=== PATIENT | female | born 1955 | race African-American/Black ===

== ENCOUNTER 2016-03-30 08:27 | Day surgery (SDC) | payer MEDICARE ==
[~2016-03-30] VITALS: Ht 167.6 cm; Wt 60.9 kg
[~2016-03-30 08:27] MED LIST: GLIPIZIDE10 MG PO; GLUCOTROL 5 MG T5 MG PO; MIRALAX17 GM PO; NEPHRO-VITE RX1 TAB PO; NORCO 7.5/325 T1 TA1 PO; PHOSLO667 MG PO; PROTONIX40 MG PO; ULTRAM50 MG PO; ZOFRAN ODT4 MG/UDTAB PO
[2016-03-30] MEDS ORDERED: NORMODYNE / TR200 MG PO (09:01)
[2016-03-30] MEDS ORDERED: CATAPRES0.2 MG PO (09:02)
[2016-03-30] MEDS ORDERED: NORVASC10 MG PO (09:02)
[2016-03-30] MEDS ORDERED: LIPITOR20 MG PO (09:02)
[2016-03-30] MEDS ORDERED: PEPCID20 MG PO (09:03)
[2016-03-30] MEDS ORDERED: PHOSLO667 MG PO (09:04)
[2016-03-30] MEDS ORDERED: OMEPRAZOLE20 M1 PO (09:04)
[2016-03-30] MEDS ORDERED: GABAPENTIN100 MG PO (09:04)
[2016-03-30 09:24] VITALS: BP 182/94; Ht 167.6 cm; Wt 60.9 kg
[2016-03-30 09:27] LABS: BASOPHILS 0.1 % (0.0-2.0); EOSINOPHILS 4.7 % (0-7); HEMATOCRIT 36.4 % (36.0-48.0); HEMOGLOBIN 11.7 g/dL (12-16); IMMATURE GRANULOCYTES 0.2 % (0-5); LYMPHOCYTES 9.9 % (15-50); MCH 29.8 pg (26.0-34.0); MCHC 32.1 g/dL (31.0-37.0); MCV 92.6 fL (80.0-100.0); MEAN PLATELET VOLUME 8.9 fL (7.4-10.4); MONOCYTES 2.5 % (2-11); NEUTROPHILS 82.6 % (40-80); RBC 3.93 10x6/uL (4.00-5.40); RDW 14.1 % (11.5-14.5); WBC 8.5 10x3/uL (4.8-10.8)
[2016-03-30 09:35] LABS: PLATELET COUNT 179 10x3/uL (130-400)
[2016-03-30 09:42] LABS: ANION GAP 16.7 mmol/L (8-16); CALCIUM 9.2 mg/dL (8.5-10.1); CARBON DIOXIDE 29.2 mmol/L (21.0-32.0); CREATININE - SERUM 8.1 mg/dL (0.6-1.3); POTASSIUM - SERUM 3.9 mmol/L (3.5-5.1)
--- NOTE | 2016-04-12 19:43 | HP ---
PATIENT: GRISEL HERNANDEZ MEDICAL RECORD: [id number] ACCOUNT: [id number] LOCATION:[facility] : 55 ADMISSION DATE: 03/30/16 HISTORY AND PHYSICAL EXAMINATION HISTORY OF PRESENT ILLNESS: The patient is a 60-year-old black female with diabetes, hypertension, end-stage renal disease on hemodialysis as well as a reported history of colon cancer resected in [place] several years ago, who now presents for surveillance colonoscopy. She also has chronic epigastric/periumbilical pain associated nausea and occasional vomiting. She was hospitalized for this in December of last year. She has had her gallbladder removed in the past. A CT of the abdomen and pelvis were unremarkable. KUB revealed constipation. EGD was normal. She was treated with MiraLax and mineral oil and was sent home. She is now for surveillance colonoscopy. She apparently has not had a colonoscopy since her surgery for her colon cancer. PAST MEDICAL HISTORY: As above. PAST SURGICAL HISTORY: Remarkable for her colon resection, open cholecystectomy, , hysterectomy. ALLERGIES: No known drug allergies. HOME MEDICATIONS: Include glipizide, Zofran, Ultram, Moran, which I told her to stop as well as MiraLax and mineral oil. FAMILY HISTORY: Negative for GI disease. SOCIAL HISTORY: The patient is a nonsmoker, nondrinker. REVIEW OF SYSTEMS: Noncontributory other than in the HPI. PHYSICAL EXAMINATION: GENERAL: Reveals an elderly black female in no acute distress. VITAL SIGNS: Stable. She is afebrile. CHEST: Clear. HEART: Regular rate and rhythm. ABDOMEN: Soft and not soft and essentially nontender. She has several large abdominal scars present on the midline. EXTREMITIES: No edema. LABORATORY DATA: Unremarkable. IMPRESSION: 1. Reported history of colon cancer, status post resection in [place] a few years ago. Details of this are very sketchy. 2. Chronic abdominal pain, more likely related to underlying chronic constipation. Again, she had a negative EGD, gastric emptying scan, and CT of the abdomen recently. PLAN: Surveillance colonoscopy. TRANSINT:[id number] Voice Confirmation ID: [id number] DOCUMENT ID: [id number] HISTORY AND PHYSICAL [id number] GRISEL HERNANDEZ JOHN MD at 1943 CC: [id number] DICTATION DATE: 03/30/16 1256 AIRLINE PILOT: 03/30/16 1314 [facility] 03/30/16 [facility] [address] [id number]
--- NOTE | 2016-04-12 19:43 | PRO ---
PATIENT:GRISEL HERNANDEZ MEDICAL RECORD: [id number] : 55 LOCATION:D.OPS ADMISSION DATE: 03/30/16 PROCEDURE PERFORMED BY: JUAN A NAM MD DATE OF PROCEDURE: 03/30/2016 HAND DRILLER: Juan A Nam MD PROCEDURE: Colonoscopy with polypectomy times 12 via hot biopsy and snare cautery technique. INDICATION: The patient is a 60-year-old black female with history of end-stage renal disease on hemodialysis, diabetes and hypertension as well as a history of colon cancer resected in [place] a few years ago per her report, who is now for surveillance colonoscopy. She has chronic abdominal pain, felt to be due to chronic constipation. She had a negative CT of the abdomen and pelvis as well as EGD and gastric emptying scan recently. She is now for surveillance colonoscopy. PREMEDICATION: Taper anesthesia. INSTRUMENT: Olympus video adjustable colonoscope. FINDINGS: Rectal exam was normal. The colonoscope was passed through the rectum into the cecum without much difficulty. Prep was good. Exam was remarkable for a surgical change consistent with a sigmoid colectomy with an anastomotic site roughly 10 cm from anal verge. Exam was also remarkable for multiple colon polyps throughout the entire right side of the colon extending from the appendiceal orifice to roughly the hepatic flexure. These polyps range from 8 mm to 18 mm in size and were removed by hot biopsy and some snare cautery technique. The rest of exam was normal. The patient tolerated the procedure well without any immediate complication. IMPRESSION: 1. Multiple right-sided colon polyps, status post polypectomy via hot biopsy and snare cautery technique as noted above times 12. 2. Surgical change consistent with a sigmoid colectomy. 3. Otherwise, normal colonoscopy. RECOMMENDATIONS: 1. Follow up biopsy results. 2. Surveillance colonoscopy in 1 year. TRANSINT:[id number] Voice Confirmation ID: [id number] DOCUMENT ID: [id number] JUAN A NAM MD at 1943 CC: JENNIE VERGARA MD [id number] DICTATION DATE: 03/30/16 1343 LOAN COUNSELOR: 03/30/16 1909 [facility] 03/30/16 [facility] [address] [id number]
== END 2016-03-30 15:00 | disposition home or self-care (01) ==
LOC: D.OPS 08:27
PROVIDERS: Anesthesiology
DX: K63.5 Polyp of colon (principal); E11.9 Type 2 diabetes mellitus without complications; I13.2 Hypertensive heart and chronic kidney disease with heart failure and with stage 5 chronic kidney disease, or end stage renal disease; N18.6 End stage renal disease; Z99.2 Dependence on renal dialysis; K21.9 Gastro-esophageal reflux disease without esophagitis; Z85.038 Personal history of other malignant neoplasm of large intestine

== ENCOUNTER 2017-03-25 14:42 | Inpatient (IN) | payer MEDICARE ==
[~2017-03-25] VITALS: Ht 167.6 cm; Wt 62.3 kg
--- NOTE | ~2017-03-25 | DS ---
PATIENT:GRISEL MCCORMACK :55 MEDICAL RECORD: [id number] DISCHARGE SUMMARY ADMISSION DATE: 03/25/17 DISCHARGE DATE: 04/03/17 Ms. Mccormack is a 61-year-old black female with end-stage renal disease, on chronic dialysis in [place]; chronic hypertension; and diabetes. No recent hospitalizations. Admitted upon transfer due to continued nausea and vomiting, and was admitted for the above. HOSPITAL COURSE: The patient has a long history of nausea and vomiting. She had an abdominal ultrasound that revealed evidence of cholecystectomy, otherwise negative. She underwent a gastric emptying scan that was markedly positive for gastroparesis. She was begun on Reglan therapy with acceleration of dosage. She still had nausea, seen by Dr. Richards, where she underwent an EGD with finding of some gastroparesis and mild gastritis, otherwise negative. No ulcer, etc. She was felt to be stable on medical therapy. With accelerating Reglan dose, she did improve and was stable at the time of discharge. She underwent acute dialysis without difficulty. DISCHARGE DIAGNOSES: 1. Diabetic gastroparesis, on metoclopramide therapy. 2. Nausea and vomiting, resolved. 3. Diabetes mellitus. 4. End-stage renal disease, on chronic dialysis. 5. Erythropoietin-dependent anemia. PLAN: The patient will be discharged today. We will see her weekly in [place]. She will resume her [place] dialysis. Home health and O2 as qualified. Discharge meds will be PhosLo one t.i.d., hydrocodone p.r.n., Reglan 10 a.c. and at bedtime, Neurontin 100 b.i.d., Zofran p.r.n., clonidine 0.1 b.i.d., Glucotrol 5 daily, Protonix 40 daily, and labetalol 200 mg b.i.d. TRANSINT:[id number] Voice Confirmation ID: [id number] DOCUMENT ID: [id number] JENNIE VERGARA MD at 0655 CC: [id number] DICTATION DATE: 04/03/17 0726 REAR ADMIRAL: 04/03/17 1539 DIS IN 04/03/[id number] [place] [address]
[~2017-03-25 14:42] MED LIST changes: +CATAPRES0.2 MG PO; +GABAPENTIN100 MG PO; +LIPITOR20 MG PO; +NORMODYNE / TR200 MG PO; +NORVASC10 MG PO; +OMEPRAZOLE20 M1 PO; +PEPCID20 MG PO
[2017-03-25 15:05] VITALS: BMI 21.3
[2017-03-26] VITALS: BP 143/75
[2017-03-26 05:10] LABS: BASOPHILS 0 % (0-2); EOSINOPHILS 5.2 % (0-7); HEMATOCRIT 33.3 % (36.0-48.0); HEMOGLOBIN 11.2 g/dL (12-16); IMMATURE GRANULOCYTES 0.2 % (0-5); LYMPHOCYTES 9.3 % (15-50); MCH 31.9 pg (26.0-34.0); MCHC 33.6 g/dL (31.0-37.0); MCV 94.9 fL (80.0-100.0); MONOCYTES 7.3 % (2-11); PLATELET COUNT 156 10x3/uL (130-400); RBC 3.51 10x6/uL (4.00-5.40); RDW 16.2 % (11.5-14.5); WBC 8.3 10x3/uL (4.8-10.8)
[2017-03-26 05:20] LABS: ALBUMIN 3.3 g/dL (3.4-5.0); ANION GAP 19.6 mmol/L (8-16); BILIRUBIN - TOTAL 0.7 mg/dL (0.2-1.3); CALCIUM 7.9 mg/dL (8.5-10.1); CREATININE - SERUM 11.4 mg/dL (0.6-1.3); PHOSPHOROUS 8.9 mg/dL (2.5-4.9); POTASSIUM - SERUM 4.6 mmol/L (3.5-5.1); PROTEIN - SERUM 7.1 g/dL (6.4-8.2)
[2017-03-26 08:09] VITALS: Ht 167.6 cm; Wt 62.3 kg
[2017-03-26 08:43] VITALS: BP 140/70
[2017-03-26 12:11] VITALS: BP 145/85
[2017-03-26 17:50] VITALS: BP 149/76
[2017-03-26 22:06] VITALS: BP 148/70
[2017-03-27 01:10] VITALS: BP 134/72
[2017-03-27 05:07] VITALS: BP 107/59
[2017-03-27 05:49] LABS: BASOPHILS 0.1 % (0-2); EOSINOPHILS 11.5 % (0-7); HEMATOCRIT 33.4 % (36.0-48.0); IMMATURE GRANULOCYTES 0.3 % (0-5); LYMPHOCYTES 16.4 % (15-50); MCH 31.9 pg (26.0-34.0); MCHC 32.9 g/dL (31.0-37.0); MCV 96.8 fL (80.0-100.0); MEAN PLATELET VOLUME 9.4 fL (7.4-10.4); MONOCYTES 6.3 % (2-11); NEUTROPHILS 65.4 % (40-80); PLATELET COUNT 148 10x3/uL (130-400); RBC 3.45 10x6/uL (4.00-5.40); WBC 7.6 10x3/uL (4.8-10.8)
[2017-03-27 06:15] LABS: ANION GAP 23.4 mmol/L (8-16); CALCIUM 7.9 mg/dL (8.5-10.1); CARBON DIOXIDE 23.1 mmol/L (21.0-32.0); CREATININE - SERUM 13.4 mg/dL (0.6-1.3); POTASSIUM - SERUM 4.5 mmol/L (3.5-5.1)
[2017-03-27 06:44] LABS: PHOSPHOROUS 11.1 mg/dL (2.5-4.9)
[2017-03-27 08:19] VITALS: BP 136/71
[2017-03-27 12:21] VITALS: BP 151/74
[2017-03-27 16:08] VITALS: BP 153/69
[2017-03-27 21:59] VITALS: BP 143/81
[2017-03-28 01:46] VITALS: BP 127/57
[2017-03-28 04:53] LABS: BASOPHILS 0.1 % (0-2); EOSINOPHILS 11.5 % (0-7); HEMATOCRIT 34.8 % (36.0-48.0); HEMOGLOBIN 11.4 g/dL (12-16); IMMATURE GRANULOCYTES 0.2 % (0-5); MCH 31.8 pg (26.0-34.0); MCHC 32.8 g/dL (31.0-37.0); MCV 97.2 fL (80.0-100.0); MEAN PLATELET VOLUME 9.1 fL (7.4-10.4); NEUTROPHILS 68.2 % (40-80); PLATELET COUNT 156 10x3/uL (130-400); RBC 3.58 10x6/uL (4.00-5.40); RDW 15.5 % (11.5-14.5); WBC 8.1 10x3/uL (4.8-10.8)
[2017-03-28 05:24] VITALS: BP 127/61
[2017-03-28 05:30] LABS: ALBUMIN 3.4 g/dL (3.4-5.0); ANION GAP 21.4 mmol/L (8-16); BILIRUBIN - TOTAL 0.61 mg/dL (0.2-1.3); CARBON DIOXIDE 26.4 mmol/L (21.0-32.0); CREATININE - SERUM 10.5 mg/dL (0.6-1.3); POTASSIUM - SERUM 4.8 mmol/L (3.5-5.1); PROTEIN - SERUM 7.2 g/dL (6.4-8.2)
[2017-03-28 05:34] LABS: PHOSPHOROUS 10.2 mg/dL (2.5-4.9)
[2017-03-28 08:30] VITALS: BP 150/76
[2017-03-28 11:28] VITALS: BP 110/58
[2017-03-28 21:37] VITALS: BP 128/65
[2017-03-29 01:49] VITALS: BP 111/66
[2017-03-29 05:36] VITALS: BP 112/54
[2017-03-29 06:14] LABS: ANION GAP 23.9 mmol/L (8-16); CARBON DIOXIDE 24.9 mmol/L (21.0-32.0); CREATININE - SERUM 12.5 mg/dL (0.6-1.3); POTASSIUM - SERUM 4.8 mmol/L (3.5-5.1)
[2017-03-29 08:23] VITALS: BP 147/75
[2017-03-29 17:09] VITALS: BP 125/67
[2017-03-29 21:30] VITALS: BP 98/66
[2017-03-30 04:09] LABS: BASOPHILS 0.1 % (0-2); EOSINOPHILS 10.5 % (0-7); HEMATOCRIT 34.4 % (36.0-48.0); HEMOGLOBIN 11.4 g/dL (12-16); IMMATURE GRANULOCYTES 0.2 % (0-5); LYMPHOCYTES 13.1 % (15-50); MCH 32.4 pg (26.0-34.0); MCHC 33.1 g/dL (31.0-37.0); MCV 97.7 fL (80.0-100.0); MEAN PLATELET VOLUME 9.2 fL (7.4-10.4); MONOCYTES 8.6 % (2-11); NEUTROPHILS 67.5 % (40-80); PLATELET COUNT 164 10x3/uL (130-400); RBC 3.52 10x6/uL (4.00-5.40); RDW 15.2 % (11.5-14.5); WBC 8.8 10x3/uL (4.8-10.8)
[2017-03-30 04:24] LABS: ANION GAP 16.6 mmol/L (8-16); CALCIUM 8.5 mg/dL (8.5-10.1); CARBON DIOXIDE 28.9 mmol/L (21.0-32.0); PHOSPHOROUS 8.5 mg/dL (2.5-4.9); POTASSIUM - SERUM 4.5 mmol/L (3.5-5.1)
[2017-03-30 04:25] LABS: CREATININE - SERUM 8.5 mg/dL (0.6-1.3)
[2017-03-30 06:36] VITALS: BP 105/55
[2017-03-30 09:09] VITALS: BP 136/52
[2017-03-30] MEDS ORDERED: PROTONIX40 MG PO (10:01)
[2017-03-30] MEDS ORDERED: REGLAN10 MG PO (10:01)
[2017-03-30 12:15] VITALS: BP 140/67
[2017-03-30 15:58] VITALS: BP 149/75
[2017-03-30 20:26] VITALS: BP 136/62
[2017-03-31 03:34] VITALS: BP 110/46
[2017-03-31 07:00] VITALS: BP 144/75
[2017-03-31 12:48] VITALS: BP 108/52
[2017-03-31 16:00] VITALS: BP 124/60
[2017-03-31 21:41] VITALS: BP 123/66
[2017-04-01 01:10] VITALS: BP 116/45
[2017-04-01 04:58] VITALS: BP 140/62
[2017-04-01 08:14] VITALS: BP 156/70
[2017-04-01 20:00] VITALS: BP 134/54
[2017-04-02 04:00] VITALS: BP 106/44
[2017-04-02 05:06] LABS: BASOPHILS 0.1 % (0-2); HEMATOCRIT 33.7 % (36.0-48.0); HEMOGLOBIN 11.1 g/dL (12-16); IMMATURE GRANULOCYTES 0.5 % (0-5); LYMPHOCYTES 14.1 % (15-50); MCH 32.1 pg (26.0-34.0); MCHC 32.9 g/dL (31.0-37.0); MCV 97.4 fL (80.0-100.0); MEAN PLATELET VOLUME 9.6 fL (7.4-10.4); MONOCYTES 5.9 % (2-11); NEUTROPHILS 73.4 % (40-80); PLATELET COUNT 173 10x3/uL (130-400); RBC 3.46 10x6/uL (4.00-5.40); RDW 14.8 % (11.5-14.5); WBC 9.3 10x3/uL (4.8-10.8)
[2017-04-02 05:08] LABS: ANION GAP 19.9 mmol/L (8-16); CALCIUM 8.5 mg/dL (8.5-10.1); CREATININE - SERUM 10.9 mg/dL (0.6-1.3); PHOSPHOROUS 8.6 mg/dL (2.5-4.9); POTASSIUM - SERUM 4.9 mmol/L (3.5-5.1)
[2017-04-02 09:12] VITALS: BP 122/57
[2017-04-02 12:10] VITALS: BP 128/55
[2017-04-02 17:34] VITALS: BP 107/59
[2017-04-02 21:31] VITALS: BP 159/73
[2017-04-03 00:30] VITALS: BP 133/49
[2017-04-03 04:30] VITALS: BP 135/56
[2017-04-03 12:33] VITALS: BP 151/69
== END 2017-04-03 17:35 | disposition home health service (06) | DRG 73 ==
LOC: D.M2 14:42
PROVIDERS: Internal Medicine Nephrology
PROC: 5A1D70Z Performance of Urinary Filtration, Intermittent, Less than 6 Hours Per Day (ICD-10-PCS; principal; 2017-03-25)
PROC: 0DB68ZX Excision of Stomach, Via Natural or Artificial Opening Endoscopic, Diagnostic (ICD-10-PCS; 2017-04-02)
DX: E11.43 Type 2 diabetes mellitus with diabetic autonomic (poly)neuropathy (principal); N18.6 End stage renal disease; I12.0 Hypertensive chronic kidney disease with stage 5 chronic kidney disease or end stage renal disease; Z85.038 Personal history of other malignant neoplasm of large intestine; E87.5 Hyperkalemia; E11.22 Type 2 diabetes mellitus with diabetic chronic kidney disease; K31.84 Gastroparesis; Z99.2 Dependence on renal dialysis; Z91.15 Patient's noncompliance with renal dialysis; K31.7 Polyp of stomach and duodenum; K29.00 Acute gastritis without bleeding; T50.905A Adverse effect of unspecified drugs, medicaments and biological substances, initial encounter

== ENCOUNTER 2018-03-09 23:08 | Inpatient (IN) | payer MEDICARE ==
[~2018-03-09] VITALS: Ht 167.6 cm; Wt 56.7 kg
--- NOTE | ~2018-03-09 | HEMODYNAMI ---
PATIENT:GRISEL HERNANDEZ MEDICAL RECORD: [id number] : 55 LOCATION:[facility] D231 ADMISSION DATE: 03/10/18 Generatedon:03/10/201816:43 Patient name: GRISEL HERNANDEZ Patient #: [id number] SSN: : 1955 Date of study: 03/10/2018 Page: Of Hemodynamic Procedure Report Patient Data Patient Demographics Procedure consent was obtained First Name: GRISEL Gender: Female Last Name: DAVID : 1955 Patient #: [id number] Age: 62 year(s) Race: Black Additional ID: [id number] Contact details [address]: [address] [place] [address] State: [place] City: [place] Zip code: [address] Admission Admission Data Admission Date: 03/10/2018 Admission Time: 0:31 Room #: D2313 Lab Results Lab Result Date: 03/10/2018 Lab Result Time: 0:00 Biochemistry Name Units Result Min Max BUN mg/dl 57 --(----)-* 7 18 Creatinine mg/dl 11.5 --(----)-* 0.6 1.3 CBC Name Units Result Min Max Hemoglobin g/dl 11 *-(----)-- 13.5 17.5 Procedure Procedure Types Cath Procedure Diagnostic Procedure [facility] w/Coronaries Sedation Charges Moderate Sedation up to 15 minutes PCI Procedure PTCA PTCA Initial Procedure Description Procedure Date Procedure Date: 03/10/2018 Procedure Start Time: 16:20 Procedure End Time: 16:41 Procedure Staff Name Function Mitchel Multani MD Performing Physician John Bernard RN Nurse Maki Peguero RT Scrub Trupti Gilliam RT Monitor Procedure Data Cath Procedure Fluoroscopy Diagnostic fluoroscopy Total fluoroscopy Time: 8.2 time: 8.2 min min Diagnostic fluoroscopy Total fluoroscopy dose: 541 dose: 541 mGy mGy Contrast Material Contrast Material Type Amount (ml) Isovue 300 118 Entry Location Entry Primary Successful Side Size Upsize Upsize Entry Closure Succes sful Closure Location (Fr) 1 (Fr) 2 (Fr) Remarks Device Remarks Femoral Right 5 Fr 6 Fr Exoseal artery Short Estimated blood loss: 10 ml Diagnostic catheters Device Type Used For End Catheter Placement MULTIPACK Pigtail 5 Fr Procedure catheter MULTIPACK JL 4.0 5Fr Procedure catheter MULTIPACK 3DRC 5Fr Procedure catheter Procedure Complications No complications Procedure Medications Medication Administration Route Dosage Oxygen etCO2 Nasal cannula 2 l/min Heparin Flush Bag added to field 2 bags (1000units/500ml NS) 0.9% NaCl I.V. 100 ml/hr Fentanyl I.V. 50 mcg Versed I.V. 1 mg Fentanyl I.V. 50 mcg Versed I.V. 1 mg Fentanyl I.V. 50 mcg Heparin Bolus I.V. 4000 units Integrilin (Bolus I.V. 6.2 ml 2mg/ml) Integrilin (Bolus wasted 3.8 ml 2mg/ml) Hemodynamics Rest HGB: 11 (g/dl) Heart Rate: 91 (bpm) Snapshots Pre Cath Intra NCS Post Cath Vital Signs Time Heart Resp SPO2 etCO2 NIBP (mmHg) Rhythm Pain Sedation Rate (ipm) (%) (mmHg) Status Level (bpm) 15:18:20 91 16 100 0 121/70(97) NSR 0 (11) 10(A) , No pain 15:22:32 105 17 100 0 131/78(104) NSR 0 (11) 10(A) , No pain 15:26:50 90 17 100 0 123/70(97) NSR 0 (11) 10(A) , No pain 15:31:02 85 12 97 0 119/61(96) NSR 0 (11) 10(A) , No pain 15:35:12 87 17 95 0 126/75(102) NSR 0 (11) 10(A) , No pain 15:39:24 91 17 97 0 138/77(110) NSR 0 (11) 10(A) , No pain 15:43:34 105 17 98 0 140/83(116) NSR 0 (11) 10(A) , No pain 15:47:50 91 17 99 0 136/80(109) NSR 0 (11) 10(A) , No pain 15:52:10 98 17 99 0 127/69(98) NSR 0 (11) 10(A) , No pain 15:56:20 89 17 99 0 129/82(108) NSR 0 (11) 10(A) , No pain 16:00:34 90 17 99 0 129/76(104) NSR 0 (11) 10(A) , No pain 16:04:49 92 16 99 0 131/71(98) NSR 0 (11) 10(A) , No pain 16:09:06 92 17 100 0 120/69(96) NSR 0 (11) 10(A) , No pain 16:13:17 96 17 99 0 126/70(95) NSR 0 (11) 10(A) , No pain 16:17:32 89 16 99 0 125/73(98) NSR 0 (11) 9(A) , No pain 16:21:43 90 16 99 0 124/72(94) NSR 0 (11) 9(A) , No pain 16:25:51 88 16 95 0 132/87(99) NSR 0 (11) 9(A) , No pain 16:30:10 100 16 96 0 150/71(110) NSR 0 (11) 9(A) , No pain 16:34:27 98 17 100 0 126/79(110) NSR 0 (11) 9(A) , No pain 16:38:38 101 17 100 0 139/86(120) NSR 0 (11) 9(A) , No pain Medications Time Medication Route Dose Verified Delivered Reason Notes Effectiveness by by 15:18:23 Oxygen etCO2 2 Mitchel Lopez Per physician Nasal l/min Rangel Bernard RN cannula 15:18:31 Heparin Flush added 2 Mitchel Lopez used for Bag to bags Rangel Bernard RN procedure (1000units/500ml field NS) 15:18:44 0.9% NaCl I.V. 100 Mitchel Lopez Per physician ml/hr Rangel Bernard RN 16:13:23 Fentanyl I.V. 50 Mithcel Lopez for sedation mcg Rangel Bernard RN 16:13:30 Versed I.V. 1 mg Mitchel Lopez for sedation Rangel Bernard RN 16:21:58 Fentanyl I.V. 50 Mitchel Lopez for sedation mcg Rangel Bernard RN 16:22:02 Versed I.V. 1 mg Mitchel Lopez for sedation Rangel Bernard RN 16:26:55 Fentanyl I.V. 50 Mitchel Lopez for sedation mcg Rangel Bernard RN 16:27:08 Heparin Bolus I.V. 4000 Mitcehl Lopez for units Rangel Bernard RN anticoagulation 16:30:10 Integrilin I.V. 6.2 Mitchel Lopez for (Bolus 2mg/ml) ml Rangel Bernard RN antiplatelet therapy 16:30:19 Integrilin wasted 3.8 Mitchel Lopez for (Bolus 2mg/ml) ml Rangel Bernard RN antiplatelet therapy Procedure Log Time Note 14:50:11 John Bernard RN sent for patient. Start room use. 15:08:09 Diagnostic Cath status Elective 15:08:14 Time tracking: Call back (After hours or weekends) 15:08:20 Plan of Care:Hemodynamics will remain stable., Cardiac rhythm will remain stable., Comfort level will be maintained., Respiratory function will remain adequate., Patient/ family verbilizes understanding of procedure., Procedure tolerated without complication., Recovers from procedure without complications.. 15:08:31 Patient received from ICU to CCL 1 Alert and oriented. Tansferred to table in Supine position. 15:08:33 Warm blankets applied, and atilio hugger turned on for patient comfort. 15:08:34 Correct patient and procedure confirmed by team. 15:08:36 Signed procedure consent form obtained from patient. 15:08:44 H&P Date Dictated: 03/10/2018 Within 30 days and on chart., H&P Addendum completed by physician on day of procedure. (MUST COMPLETE FOR ALL OUTPATIENTS). 15:09:09 Pre-procedure instructions explained to patient. 15:09:12 Family in waiting room. 15:09:15 Patient NPO since Midnight. 15:17:10 ECG and BP/O2 sat monitors applied to patient. 15:17:12 Vital chart was started 15:18:23 Oxygen 2 l/min etCO2 Nasal cannula was administered by John Bernard RN; Per physician; 15:18:31 Heparin Flush Bag (1000units/500ml NS) 2 bags added to field was administered by John Bernard RN; used for procedure; 15:18:44 0.9% NaCl 100 ml/hr I.V. was administered by John Bernard RN; Per physician; 15:19:09 Baseline sample Acquired. 15:24:19 Rhythm: sinus rhythm 15:24:51 Full Disclosure recording started 15:25:25 Is the patient allergic to Iodine/contrast media? Yes. 15:25:27 Was the patient premedicated? Yes 15:25:30 Is patient on blood thinner?Yes 15:25:34 ACC The patient was administered the following blood thiners within the last 24 hours: ACCPlavix 15:27:36 Plavix tablets found in pt's bed. Plavix loaded at 15:25 12.31.18 15:28:13 Patient diabetic? Yes. 15:28:14 If diabetic: On Metformin? No 15:28:18 Previous problem with sedation/anesthesia? No ? 15:28:20 Snore? Yes 15:28:53 Sleep apnea? No 15:28:55 Deviated septum? No 15:28:55 Opens mouth fully? Yes 15:28:56 Sticks out tongue? Yes 15:28:58 Airway obstruction? Yes ? 15:29:16 Dentures? No ? 15:29:34 Pre procedure: right dorsailis pedis pulse 1+ Palpable, but thready & weak; easily obliterated 15:29:35 PT HAS A RESERVE RIGHT ARM. 15:30:01 Patient pain scale 0/10 ?. 15:30:11 IV patent on arrival in left forearm with 0.9% NaCl at KVO. 15:30:14 Lab results completed and on chart. 15:30:15 Right groin area was prepped with chlora-prep and draped in sterile fashion 15:30:16 Alarms reviewed by R. N. 15:30:17 Sharps counted by scrub and verified by R.N. 15:31:34 Use device set Femoral Dx 15:31:36 Tegaderm 4 x 4 (1626W) opened to sterile field. 15:31:37 ACIST Manifold (17599) opened to sterile field. 15:31:38 ACIST Hand Control (32082) opened to sterile field. 15:31:41 Medline Cath Pack ([id number]) opened to sterile field. 15:31:42 ACIST Syringe (56668) opened to sterile field. 15:31:42 Bag Decanter () opened to sterile field. 15:31:44 DIAGNOSTIC WIRE .035 260cm J wire ([id number]) opened to sterile field. 15:31:45 DIAGNOSTIC Multipack 5Fr catheter set ([id number]) opened to sterile field. 15:31:47 SHEATH 5FR Redig (IPB309) opened to sterile field. 15:42:19 Lab Result : BUN 57 mg/dl 15:42:19 Lab Result : Creatinine 11.5 mg/dl 15:42:19 Lab Result : Hemoglobin 11 g/dl 16::16 --------ALL STOP TIME OUT------ 16::16 Final Timeout: patient, procedure, and site verified with staff and physician. All members of the team are in agreement. 16:13:18 Right groin site verified by team. 16:13:23 Fentanyl 50 mcg I.V. was administered by John Bernard RN; for sedation; 16:13:24 Physical assessment completed. ASA score P 2 - A patient with mild systemic disease as per Mitchel Multani MD. 16:13:27 Sedation plan: IV Moderate Sedation Medication:Versed, Fentanyl 16:13:30 Versed 1 mg I.V. was administered by John Bernard RN; for sedation; 16:15:08 Zero performed for pressure channel P1 16:20:05 Procedure started. 16:20:12 Local anesthetic to right femoral artery with Lidocaine 2% by Mitchel Multani MD.INITIAL ACCESS ONLY 16:21:37 A 5 Fr sheath was inserted into the Right Femoral artery 16:21:58 Fentanyl 50 mcg I.V. was administered by John Bernard RN; for sedation; 16:22:02 Versed 1 mg I.V. was administered by John Bernard RN; for sedation; 16:22:09 A MULTIPACK Pigtail 5 Fr catheter was advanced over the wire and used for Procedure. 16:22:25 LV gram done using ANDRES 16:22:30 Injector settings: Ml/sec: 10, Volume: 20, 16:22:42 EF : 30 % 16:22:43 Catheter removed. 16:22:47 A MULTIPACK JL 4.0 5Fr catheter was advanced over the wire and used for Procedure. 16:23:55 LCA angiography performed. 16:23:56 Catheter removed. 16:24:14 SHEATH 6FR Redig (WQF846) opened to sterile field. 16:24:14 CHOICE PT Extra Support 182cm wire ([id number]) opened to sterile field. 16:24:14 INFLATOR Merit BasixCompak (LX8018) opened to sterile field. 16:24:26 A MULTIPACK 3DRC 5Fr catheter was advanced over the wire and used for Procedure. 16:24:41 RCA angiography performed. 16::43 Catheter removed. 16:25:21 Sheath upsized to a 6 Fr Short. 16:25:48 GUIDE 6FR XB 3.5 catheter ([id number]) opened to sterile field. 16:26:06 6 Fr XB 3.5 guide catheter was inserted over the wire 16:26:55 Fentanyl 50 mcg I.V. was administered by John Beranrd RN; for sedation; 16::56 CHOICE ES 182 wire advanced. 16:27:08 Heparin Bolus 4000 units I.V. was administered by John Bernard RN; for anticoagulation; 16:29:02 UNABLE TO CROSS. WIRE REMOVED 16:29:08 FIELDER XT 190cm guidewire ([id number]) opened to sterile field. 16:29:40 FIELDER 190 wire advanced. 16:30:10 Integrilin (Bolus 2mg/ml) 6.2 ml I.V. was administered by John Bernard RN; for antiplatelet therapy; 16:30:19 Integrilin (Bolus 2mg/ml) 3.8 ml wasted was administered by John Bernard RN; for antiplatelet therapy; 16:32:08 Wire advanced across lesion. 16:34:36 Inflate balloon Inflation number: 1 A EUPHORA 2.0 x 20 Balloon ([id number]) was prepped and advanced across the Mid LAD, then inflated to 9 ARLETTE for 0:00 (min:sec). 16:34:53 Balloon removed over the wire. 16:36:17 Inflate balloon Inflation number: 1 A EUPHORA 1.5 x 20 Balloon ([id number]) was prepped and advanced across the Dist LAD, then inflated to 15 ARLETTE for 0:00 (min:sec). 16:37:16 Balloon removed over the wire. 16:37:19 Wire removed. 16:37:19 Guide catheter removed. 16:37:25 EXOSEAL 6Fr (EX600) opened to sterile field. 16:38:02 Sheath removed intact; hemostasis achieved with Exoseal to the Right Femoral artery. 16:38:04 Procedure ended.(Physican Out) 16:39:02 Fluoroscopy time 08.20 minutes. 16:39:06 Fluoroscopy dose: 541 mGy 16:39:06 Flurop Dose total: 541 16:39:10 Contrast amount:Isovue 300 118ml. 16:39:12 Sharps counted by scrub and verified by R.N. 16:39:18 Post-op/insertion site Right Femoral artery dressed using a 4 x 4 and Tegaderm. 16:39:22 Post-procedure physical assessment completed. ASA score P 2 - A patient with mild systemic disease as per Mitchel Multani MD. 16:39:25 Post procedure rhythm: unchanged. 16:39:32 Estimated blood loss: 10 ml 16:39:34 Post procedure instruction explained to patient.Patient verbalizes understanding. 16:39:34 Patient needs reinforcement of post procedure teaching. 16:40:07 Procedure type changed to Cath procedure, Diagnostic procedure, LHC, LHC w/Coronaries, Sedation Charges, Moderate Sedation up to 15 minutes, PCI procedure, PTCA, PTCA Initial 16:40:46 Procedure and supply charges have been captured, reviewed, submitted and are correct. 16:40:49 Procedure Complication : No complications 16:40:51 Vital chart was stopped 16:40:52 See physician's report for complete and final results. 16:40:54 Report given to ICU. 16:41:00 Patient transfered to ICU with Bed. 16:41:01 Procedure ended. 16:41:01 Full Disclosure recording stopped 16:41:05 End room use (Document Last) Intervention Summary Intervention Notes Time ActionType Lesion and Equipment Action# Pressure Duration Attributes Used 16:34:36 Inflate Mid LAD EUPHORA 1 9 00:00 balloon 2.0 x 20 Balloon ([id number]) 16:36:17 Inflate Dist LAD EUPHORA 1 15 00:00 balloon 1.5 x 20 Balloon ([id number]) Device Usage Item Name Manufacture Quantity Catalog Number [facility] Part Current [facility] Lot# / Charge Number Stock Stock Serial# Code Tegaderm 4 3M 1 1626W [id number] 140856 929690 5 x 4 (1626W) ACIST Acist 1 53393 243054 124362 530151 5 Manifold Medical (11393) Systems Inc ACIST Hand Acist 1 60533 745942 761118 150597 5 Control Medical (33823) Systems Inc Medline Medline 1 [id number] 690518 39345 759446 5 Cath Pack ([id number]) ACIST Acist 1 35539 645686 177340 443710 20 Syringe Medical (13939) Systems Inc Bag Microtek 1 2001S 181431 48716 134216 5 Decanter Medical Inc. (2001S) DIAGNOSTIC St [place] 1 175991 888574 743601 650384 30 WIRE .035 260cm J wire (849912) DIAGNOSTIC Cardinal 1 MQ9268 798669 79145 823361 30 Multipack Health 5Fr catheter set (EJ3724) SHEATH 5FR Terumo 1 PYE247 505581 467956 376410 5 Redig (CLE007) MULTIPACK Cardinal 1 521302 5 Pigtail 5 Health Fr catheter MULTIPACK Cardinal 1 453893 5 JL 4.0 5Fr Health catheter MULTIPACK Cardinal 1 396322 5 3DRC 5Fr Health catheter SHEATH 6FR Terumo 1 LDN388 213498 610650 913061 40 Redig (TNF200) CHOICE PT [employer] 1 [id number] 181857 954391 319579 5 Extra Scientific Support 182cm wire ([id number]) INFLATOR Merit 1 HL7592 182466 280543 874421 15 [facility] Medical BasixCompak (EB6679) GUIDE 6FR Cardinal 1 [id number] 523835 054341 979843 2 XB 3.5 Health catheter ([id number]) FIELDER XT Arnold 1 [id number] 964309 87152 564094 5 190cm Vascular guidewire ([id number]) EUPHORA 2.0 Medtronic 1 [id number] 562944 112200 768715 5 [id number] x 20 Balloon ([id number]) EUPHORA 1.5 Medtronic 1 [id number] 141617 400031 222425 5 [id number] x 20 Balloon ([id number]) EXOSEAL 6Fr Cardinal 1 EX600 128798 663259 724036 10 (EX600) Health Signature Audit [place]cer Stage Time Signature Unsigned Intra-Procedure 03/10/2018 Trupti Gilliam 4:43:24 PM RT(R) Signatures Monitor : Trupti Gilliam Signature : RT Date : Time : [address] [place] [address]
--- NOTE | ~2018-03-09 | OP ---
PATIENT NAME: GRISEL HERNANDEZ MEDICAL RECORD: [id number] :55 LOCATION:.[facility] D.2313 ADMISSION DATE:03/10/18 SURGEON: BLANCA MEANS MD DATE OF OPERATION: 03/10/2018 PROCEDURES: 1. PTCA to the LAD. 2. Left heart catheterization. 3. Selective coronary angiography. 4. Left ventriculogram. INDICATIONS: Angina, atrial fibrillation, coronary artery disease, and cardiomyopathy. PROCEDURE IN DETAIL: After informed consent was obtained and after a detailed description of risks, benefits as well as alternative therapies, the patient elected to proceed with angiogram and angioplasty. The right femoral area was prepped and draped in normal sterile fashion. Right femoral artery was cannulated via modified Seldinger technique with placement of 6-Tajik sheath. All catheters exchanged through this sheath. FINDINGS: Left ventriculogram was performed in standard 30-degree ANDRES view, reveals global hypokinesis throughout all segments. Overall ejection fraction estimated at 30%. SELECTIVE CORONARY ANGIOGRAPHY: 1. Left main has no significant angiographic disease. 2. Left anterior descending has 90% stenosis in the mid vessel followed by a total occlusion distally. 3. The left circumflex has a total occlusion is chronic in the proximal vessel. Distal vessel fills via left to left collaterals. 4. Right coronary is very small and diffusely diseased. PTCA OF THE LAD: We used a 1.5 and 2.0 balloon. We could balloon the 90% stenosis; however, we could not traverse the total occlusion. The vessel is extremely heavily calcified, most likely stenting was not an option in this area. OVERALL IMPRESSION: Successful percutaneous transluminal coronary angioplasty of the left anterior descending going from 90% initial stenosis to 0% residual. After this, there is a chronic total occlusion and could not be crossed with any balloon. Hence medical management of the circumflex and LAD disease. TRANSINT:[id number] Voice Confirmation ID: [id number] DOCUMENT ID: [id number] BLANCA MEANS MD CC: [id number] DICTATION DATE: 03/10/181644 UNIFORM MAKER: 03/10/18 [address] [facility] [address] [place] [address]
--- NOTE | ~2018-03-09 | EC ---
PATIENT:GRISEL HERNANDEZ DATE OF SERVICE: 03/10/18 SEX: F MEDICAL RECORD: [id number] DATE OF : 55 LOCATION:[facility] AGE OF PATIENT: 62 ADMISSION DATE: 03/10/18 REFERRING PHYSICIAN: INTERPRETING PHYSICIAN: BLANCA MULTANI MD ECHOCARDIOGRAM REPORT ECHO CHARGES 4 ECHO COMPLETE Date: 03/10/18 CLINICAL DIAGNOSIS: AFIB ECHOCARDIOGRAPHIC MEASUREMENTS (adult normal given) AC root (d.<3.7cm) 2.6 cm LV Septum d (<1.2 cm> 0.5 cm Valve Excursion 1.0 cm LV Septum (systole) 1.0 cm Left Atria (s.<4.0cm> 3.6 cm LVPW d(<1.2cm) 0.6 cm RV (d.<2.3cm) 1.6 cm LVPW (sytole) 0.7 cm LV diastole(<5.6CM) 5.8 cm MV E-F(>70mm/sec) cm LV systole 5.1 cm LVOT Diameter 1.5 cm MV exc.(>10mm) cm Est.ejection fraction (50-75%) % DOPPLER: LVIT cm/sec A 77 cm/sec E 104 cm/sec LA cm/sec RVSP 21.8 mmHg LVOT 121 cm/sec AOP1/2T m/s Asc. Ao 145 cm/sec RVOT 96 cm/sec RA cm/sec PA 80 cm/sec AV Gradient Peak 8.5 mmHg AV Mean 4.9 mmHg AV Area 1.7 cm MV Gradient Peak 7.2 mmHg MV Mean 3.7 mmHg MV Area cm COMMENTS: Fuel Cell Systems Engineer: Shaunna [facility] Patient Observer: 1 Dr. Multani TAPE# PACS Pericardial Effusion N DATE OF SERVICE: 03/10/2018 Echocardiogram FINDINGS: 1. Left ventricular chamber size is dilated. Left ventricular systolic function is significantly reduced, overall ejection fraction 30% to 35%. 2. Left atrium, right atrium, and right ventricle chamber sizes are within normal limits. 3. Valvular structures have normal structure and motion. ECHOCARDIOGRAM REPORT [id number] GRISEL HERNANDEZ 4. Doppler interrogation reveals fozn-lv-plaaaelb mitral regurgitation, mild tricuspid regurgitation, no other valvular insufficiency or stenosis. Pulmonary systolic pressure is estimated at 22 mmHg. 5. No evidence of pericardial effusion or left ventricular thrombus. TRANSINT:[id number] Voice Confirmation ID: [id number] DOCUMENT ID: [id number] BLANCA MULTANI MD CC: [id number] DICTATION DATE: 03/10/181647 STEMMING MACHINE OPERATOR: 03/10/18 2348 ADM IN [facility] [address] [id number]
[~2018-03-09 23:08] MED LIST changes: +REGLAN10 MG PO
[2018-03-09] MEDS ORDERED: NORVASC10 MG PO (23:25)
[2018-03-09] MEDS ORDERED: ZESTRIL40 MG PO (23:26)
[2018-03-09] MEDS ORDERED: HYDROCHLOROTH12.5 M1 PO (23:26)
[2018-03-09] MEDS ORDERED: OMEPRAZOLE20 M1 PO (23:27)
[2018-03-09] MEDS ORDERED: NEURONTIN 300300 MG PO (23:27)
[2018-03-09] MEDS ORDERED: TUMS X-STR300 MG PO (23:27)
[2018-03-09] MEDS ORDERED: MEGACE40 MG PO (23:27)
[2018-03-09] MEDS ORDERED: ZOFRAN8 MG PO (23:28)
--- NOTE | 2018-03-09 23:47 | NUR ---
ICE CHIPS TO PT PER HER REQUEST WITH OK BY DR DALLAS
[2018-03-10] VITALS (22 sets, daily range): BP systolic 80–127; BP diastolic 51–91; Ht 167.6 cm; Wt 56.7 kg
--- NOTE | 2018-03-10 01:15 | NUR ---
RECEIVED PT FROM ED. PT TRANSFERRED TO BED, NON SKID SOCKS PUT ON, PT ATTACHED TO MONITORS AND MONITORS ARE WORKING CORRECTLY. ADMISSION ASSESSMENT COMPLETED, SEE FLOWSHEET. PT REQUESTED ICE CHIPS, AND THOSE WERE PROVIDED TO HER. NO SIGNS OF ACUTE DISTRESS. PT HAS NO FURTHER NEEDS AT THIS TIME. WILL CONTINUE TO MONITOR.
--- NOTE | 2018-03-10 03:23 | NUR ---
PT IS RESTING QUIETLY AT THIS TIME. NO ACUTE CHANGES NOTED. NO SIGNS OF ACUTE DISTRESS. WILL CONTINUE TO MONITOR.
--- NOTE | 2018-03-10 04:50 | NUR ---
PT COMPLAINS OF SEVERE NAUSEA. DR AYALA PAGED. ORDERS RECEIVED. PT CONTINUES TO TRY TO REST. VSS. WILL CONTINUE TO MONITOR.
--- NOTE | 2018-03-10 07:00 | NUR ---
REPORT RECIEVED, SHIFT ASSESSMENT COMPLETE, PT IS ALERT AND ORIENTED, ON 3L NC WITH 97% O2 SAT. PATENT RIGHT ARM FISTULA, BRUITT AND THRILL NOTED, ALL PPP, VSS, CALL LIGHT IN REACH
[2018-03-10 09:14] LABS: BASOPHILS 0 % (0-2); EOSINOPHILS 0.7 % (0-7); HEMATOCRIT 33.9 % (36.0-48.0); IMMATURE GRANULOCYTES 0.2 % (0-5); LYMPHOCYTES 5.6 % (15-50); MCHC 32.4 g/dL (31.0-37.0); MCV 98.5 fL (80.0-100.0); MEAN PLATELET VOLUME 9.4 fL (7.4-10.4); MONOCYTES 5.2 % (2-11); NEUTROPHILS 88.3 % (40-80); PLATELET COUNT 188 10x3/uL (130-400); RBC 3.44 10x6/uL (4.00-5.40); RDW 14.5 % (11.5-14.5); WBC 11.6 10x3/uL (4.8-10.8)
--- NOTE | 2018-03-10 09:17 | NUR ---
MARY DIALLO AT BEDSIDE, UPDATE GIVEN, NEW ORDERS RECIEVED
[2018-03-10 09:37] LABS: CALCIUM 9.4 mg/dL (8.5-10.1); CARBON DIOXIDE 26.7 mmol/L (21.0-32.0); CREATININE - SERUM 11.5 mg/dL (0.6-1.3); MAGNESIUM - SERUM 1.7 mg/dL (1.8-2.4); POTASSIUM - SERUM 4.7 mmol/L (3.5-5.1); THYROID STIMULATING HORMONE 1.32 uIU/mL (0.36-3.74)
[2018-03-10 09:41] LABS: PHOSPHOROUS 10.3 mg/dL (2.5-4.9)
--- NOTE | 2018-03-10 11:15 | NUR ---
PT STILL ON HD. TOLERATING WELL
--- NOTE | 2018-03-10 14:55 | NUR ---
PT TO FIELD SALES ASSOCIATE AT THIS TIME,
--- NOTE | 2018-03-10 17:03 | NUR ---
PT BACK FORM INTERNATIONAL EXCHANGE COORDINATOR AT THIS TIME, EXOCEL TO RIGHT GROIN, NO BLEEDING OR HEMETOMA NOTED, ALL PPP, WILL CON'T TO MONITOR
--- NOTE | 2018-03-10 19:10 | NUR ---
Received patient resting in bed with eyes closed, assesment completed per flowsheet. Patient c/o nausea and abdominal pain 4/10, PRN Zofran given as ordered. Assisted to bedside commode, no BM/Urine noted at this time. Repositioned in bed, no further needs at this time. See flowsheet for details, all VSS and will continue to monitor.
--- NOTE | 2018-03-10 19:10 | NUR ---
Patient assisted to bedside commode at request, no BM/Urine noted. HS meds provided to patient, states "she will take them when her stomach feels better". Medication to be provided later, all VSS and will continue to monitor.
--- NOTE | 2018-03-10 23:10 | NUR ---
Reassessment completed per flowsheet, patient resting in bed with eyes closed. Patient assisted to bedside commode at request, no BM/Urine noted. no changes noted from previous assessment, no s/s of distress at this time. Repositioned for comfort, no further needs at this time. See flowsheet for details, all VSS and will continue to monitor.
[2018-03-11] VITALS (25 sets, daily range): BP systolic 86–131; BP diastolic 52–92
--- NOTE | 2018-03-11 01:05 | NUR ---
Patient resting in bed with eyes closed, c/o abdominal aching 05/18. Repositioned with "some" stated relief, no further needs at this time. All VSS and will continue to monitor.
--- NOTE | 2018-03-11 03:10 | NUR ---
Reassessment completed per flowsheet, patient sitting up on bedside with eyes open. Patient c/o abdominal/L flank aching 05/18, repositioned with no relief stated. No changes from previous assessment, no s/s of distress noted. no further needs at this time, see flowsheet for details. All VSS and will continue to monitor.
--- NOTE | 2018-03-11 04:10 | NUR ---
Patient stated she is "tired of the bed" and requested chair, patient moved to chair at bedside. All VSS and will continue to monitor.
[2018-03-11 04:20] LABS: ANION GAP 17.7 mmol/L (8-16); CALCIUM 8.9 mg/dL (8.5-10.1); CARBON DIOXIDE 27.8 mmol/L (21.0-32.0); POTASSIUM - SERUM 4.5 mmol/L (3.5-5.1)
[2018-03-11 04:22] LABS: BASOPHILS 0.1 % (0-2); EOSINOPHILS 0.5 % (0-7); HEMOGLOBIN 10.6 g/dL (12-16); IMMATURE GRANULOCYTES 0.2 % (0-5); LYMPHOCYTES 6.3 % (15-50); MCH 32.2 pg (26.0-34.0); MCHC 32.1 g/dL (31.0-37.0); MCV 100.3 fL (80.0-100.0); MEAN PLATELET VOLUME 9.4 fL (7.4-10.4); MONOCYTES 8.4 % (2-11); NEUTROPHILS 84.5 % (40-80); PLATELET COUNT 168 10x3/uL (130-400); RBC 3.29 10x6/uL (4.00-5.40); RDW 14.8 % (11.5-14.5)
[2018-03-11 04:23] LABS: CREATININE - SERUM 7.5 mg/dL (0.6-1.3); PHOSPHOROUS 7.6 mg/dL (2.5-4.9)
[2018-03-11 04:27] LABS: WBC 8.6 10x3/uL (4.8-10.8)
--- NOTE | 2018-03-11 09:14 | NUR ---
PT SITTING UP IN CHAIR EATING BREAKFAST. NO S/S OF ACUTE DISTRESS. CL IN PLACE.
--- NOTE | 2018-03-11 10:19 | NUR ---
PT SITTING UP IN CHAIR TALKING ON THE PHONE. LAUGHING AND SMILING. NO S/S OF ACUTE DISTRESS. CL IN PLACE.
--- NOTE | 2018-03-11 11:35 | NUR ---
ASSISTED PT WITH SPONGE BATH. CHANGED GOWN. REINFORCED EJ EULA. NO S/S OF ACUTE DISTRESS. CL IN PLACE.
--- NOTE | 2018-03-11 12:16 | NUR ---
PT SITTING UP IN CHAIR EATING LUNCH. DAUGHTER AT BEDSIDE. NO S/S OF ACUTE DISTRESS. CL IN PLACE.
--- NOTE | 2018-03-11 16:25 | NUR ---
LATE ENTRY FOR 1430. PT RESTING IN BED. CO OF PAIN IN R ABD AREA. CALLED DR DE LA TORRE WHO GAVE NEW ORDER FOR NORCO 5/325 MG Q4PRN. NORCO GIVEN. NO S/S OF ACUTE DISTRESS. CL IN PLACE.
--- NOTE | 2018-03-11 17:57 | NUR ---
PT SITTING UP WATCHING TV. NO S/S OF ACUTE DISTRESS. CL IN PLACE.
--- NOTE | 2018-03-11 19:04 | NUR ---
PT RECEIVED SUPINE IN BED AWAKE ALERT, RESP EVEN AND UNLABORED, O2 AT 2L NOTED, RT EJ NOTED TO, PATENT AND INTACT, NO S/S OF DISTRESS NOTE, PT CAN AMBULATE WITH ASSIST, DENIES FURTHER NEEDS, WILL CONT TO MONITOR, BED LOW, SR UP X2, C/L IN REACH,
--- NOTE | 2018-03-11 21:10 | NUR ---
ADMIN MEDS PER MD ORDER, PT HAS FSBS OF 72, PT GIVEN HS SNACK OF SANDWICH TO ELEVATE BS, WILL CONT MONITOR, C/L IN REACH
--- NOTE | 2018-03-11 21:57 | NUR ---
PT SFBS IN 69, PT STATES SHE DOES NOT LIKE THE SANDWICH, PT GIVEN, ICE CREAM AND GRAHMAM CRACKERS, WILL RECHECK, FSBS, WILL CONT TO MONITOR, C/L IN REACH
--- NOTE | 2018-03-11 22:15 | NUR ---
FSBS 121, WILL CONT TO MONITOR, C/L IN REACHM SAFETY PRECAUTIONS IN PLACE
[2018-03-12] VITALS (14 sets, daily range): BP systolic 90–151; BP diastolic 47–85
--- NOTE | 2018-03-12 01:15 | NUR ---
PT RESTING IN BED WITH EYES CLOSED, CHEST RISING AND FALLING, NO S/S OF DISTRESS NOTED, WILL CONT TO MONITOR, SAFETY PRECAUTION IN PLACE, C/L IN REACH
[2018-03-12 04:32] LABS: BASOPHILS 0.4 % (0-2); EOSINOPHILS 5.2 % (0-7); HEMATOCRIT 30.2 % (36.0-48.0); HEMOGLOBIN 9.7 g/dL (12-16); IMMATURE GRANULOCYTES 0.3 % (0-5); MCH 32.1 pg (26.0-34.0); MCHC 32.1 g/dL (31.0-37.0); MEAN PLATELET VOLUME 9.8 fL (7.4-10.4); NEUTROPHILS 73.1 % (40-80); PLATELET COUNT 155 10x3/uL (130-400); RBC 3.02 10x6/uL (4.00-5.40); RDW 14.6 % (11.5-14.5); WBC 7.8 10x3/uL (4.8-10.8)
[2018-03-12 05:07] LABS: ANION GAP 19.8 mmol/L (8-16); CALCIUM 8.9 mg/dL (8.5-10.1); CARBON DIOXIDE 23.7 mmol/L (21.0-32.0); CREATININE - SERUM 9.2 mg/dL (0.6-1.3); POTASSIUM - SERUM 4.5 mmol/L (3.5-5.1)
[2018-03-12 05:09] LABS: PHOSPHOROUS 9.6 mg/dL (2.5-4.9)
--- NOTE | 2018-03-12 06:07 | NUR ---
PT RESTING IN BED WITH EYES CLOSED, RESP EVEN AND UNLABORED, AROUSED TO VERBAL STIMULI, NO S/S OF DISTRESS NOTED, WILL CONT TO MONITOR, C/L IN REACH
--- NOTE | 2018-03-12 07:38 | NUR ---
AAOX4.ASSISTED PT UP TO CHAIR. NO S/S OF ACUTE DISTRESS. CL IN PLACE.
--- NOTE | 2018-03-12 07:44 | NUR ---
VICTORIA CALLED TO DISTRIBUTOR OPERATOR, OK TO TRANSFER TO FLOOR
--- NOTE | 2018-03-12 09:27 | NUR ---
CALLED REPORT TO JATIN ON MED 2. PT GOING TO ROOM 8972. PT FAMILY AWARE. NO S/S OF ACUTE DISTRESS.
--- NOTE | 2018-03-12 09:43 | NUR ---
PT TRANS TO THE FLOOR VIA WC BY X2 RNS. NO S/S OF ACUTE DISTRESS.
--- NOTE | 2018-03-12 09:51 | NUR ---
NUTRITION F/U PT MOVED TO FLOOR. NURSING REPORTS PT WITH GOOD INTAKE RENAL ADA DIET. WILL CONTINUE TO PROVIDE DIET, MONITOR PO INTAKE. RD FOLLOWING
--- NOTE | 2018-03-12 16:05 | NUR ---
PATIENT LEFT AT 1530 FOR DIALYSIS VIA BED
--- NOTE | 2018-03-12 18:34 | NUR ---
PATIENT RETURNED FROM DIALYSIS AT 1745 C/O RIGHT NECK SITE, CHECKED PT DIDN'T WANT IT PULLED, NORCO 5/325 1 PO GIVEN. CONTINUE TO MONITOR.
[2018-03-13 00:03] VITALS: BP 125/75
[2018-03-13 04:17] VITALS: BP 95/55
--- NOTE | 2018-03-13 05:16 | NUR ---
PT RESTING IN BED WITH EYEWS CLOSED. RESPIRATIONS EVEN AND UNLABORED. BED LOW CALL LIGHT WITHIN REACH. WILL CONTINUE TO MONITOR
[2018-03-13 05:24] LABS: BASOPHILS 0.1 % (0-2); HEMATOCRIT 34.4 % (36.0-48.0); HEMOGLOBIN 10.9 g/dL (12-16); IMMATURE GRANULOCYTES 0.3 % (0-5); LYMPHOCYTES 6.2 % (15-50); MCH 31.9 pg (26.0-34.0); MCHC 31.7 g/dL (31.0-37.0); MCV 100.6 fL (80.0-100.0); MEAN PLATELET VOLUME 9.9 fL (7.4-10.4); MONOCYTES 5.9 % (2-11); NEUTROPHILS 83.5 % (40-80); PLATELET COUNT 176 10x3/uL (130-400); RBC 3.42 10x6/uL (4.00-5.40); RDW 14.5 % (11.5-14.5)
[2018-03-13 05:32] LABS: WBC 11.7 10x3/uL (4.8-10.8)
[2018-03-13 05:44] LABS: ANION GAP 18.9 mmol/L (8-16); CALCIUM 9.1 mg/dL (8.5-10.1); CARBON DIOXIDE 26.8 mmol/L (21.0-32.0); CREATININE - SERUM 8.4 mg/dL (0.6-1.3)
[2018-03-13 05:49] LABS: PHOSPHOROUS 6.6 mg/dL (2.5-4.9); POTASSIUM - SERUM 3.7 mmol/L (3.5-5.1)
--- NOTE | 2018-03-13 07:45 | NUR ---
ASSESSMENT DONE. DENIES NEEDS.
[2018-03-13 08:25] VITALS: BP 111/74
--- NOTE | 2018-03-13 11:06 | NUR ---
RESTING QUIETLY NAD NOTED
[2018-03-13 12:41] VITALS: BP 118/70
[2018-03-13 15:21] LABS: APPEARANCE HAZY (CLEAR); BILIRUBIN NEGATIVE (NEGATIVE); COLOR YELLOW (YELLOW); GLUCOSE 100 mg/dL (NEGATIVE); KETONE NEGATIVE (NEGATIVE); NITRITE NEGATIVE (NEGATIVE); PROTEIN 1+ mg/dL (NEGATIVE); SPECIFIC GRAVITY 1.025 (1.005-1.020); UROBILINOGEN NORMAL (NORMAL)
[2018-03-13 15:22] LABS: EPITHELIAL CELLS >50 /hpf (0-5); RED CELLS - URINE 0-5 /hpf (0-5); WHITE CELLS - URINE 0-5 /hpf (0-5)
[2018-03-13 15:48] VITALS: BP 113/79
--- NOTE | 2018-03-13 18:06 | NUR ---
WITHOUT CHANGES OR DISTRESS NOTED AT THIS TIME.
[2018-03-13 21:41] VITALS: BP 117/69
[2018-03-14 05:44] VITALS: BP 125/67
[2018-03-14 07:06] LABS: BASOPHILS 0.1 % (0-2); EOSINOPHILS 6.6 % (0-7); HEMATOCRIT 31.2 % (36.0-48.0); IMMATURE GRANULOCYTES 0.2 % (0-5); MCH 31.7 pg (26.0-34.0); MCHC 32.1 g/dL (31.0-37.0); MEAN PLATELET VOLUME 9.9 fL (7.4-10.4); NEUTROPHILS 77.1 % (40-80); PLATELET COUNT 183 10x3/uL (130-400); RBC 3.15 10x6/uL (4.00-5.40); RDW 14.6 % (11.5-14.5); WBC 9.5 10x3/uL (4.8-10.8)
[2018-03-14 07:17] LABS: ANION GAP 20.7 mmol/L (8-16); CALCIUM 8.9 mg/dL (8.5-10.1); CARBON DIOXIDE 24.4 mmol/L (21.0-32.0); CREATININE - SERUM 10.5 mg/dL (0.6-1.3); POTASSIUM - SERUM 4.1 mmol/L (3.5-5.1)
[2018-03-14 07:21] LABS: PHOSPHOROUS 8.4 mg/dL (2.5-4.9)
--- NOTE | 2018-03-14 07:30 | NUR ---
RECEIVED A/A/OX4 SITTING UP IN BED WATCHING TV. DENIES ANY PAIN OR DISCOMFORT. BED IN LOW POSITION, SIDERAILS UP X 2 AND CALL LIGHT IN REACH. ASSESSMENT COMPLETED AND NO REQUESTS VOICED.
[2018-03-14 08:37] VITALS: BP 124/72
[2018-03-14 11:54] VITALS: BP 153/80
[2018-03-14 20:00] VITALS: BP 96/54
--- NOTE | 2018-03-14 20:00 | NUR ---
PT REFUSED ALL PM MEDS EXCEPT FOR INSULIN. PT SEEMS WITHDRAWN AND FAITUGED. TUCKED PT INTO BED BECAUSE SHE STATES SHE IS COLD. PT RESTING COMFORTABLY NOW. WILL CONTINUE TO OBSERVE AND FOLLOW POC. SR UP X2, CL IN REACH, BED IN LOWEST POSITION.
[2018-03-15] VITALS: BP 105/55
[2018-03-15 04:00] VITALS: BP 124/55
[2018-03-15 06:05] LABS: BASOPHILS 0.1 % (0-2); EOSINOPHILS 7.5 % (0-7); HEMATOCRIT 29.8 % (36.0-48.0); HEMOGLOBIN 9.6 g/dL (12-16); IMMATURE GRANULOCYTES 0.4 % (0-5); MCH 31.9 pg (26.0-34.0); MCHC 32.2 g/dL (31.0-37.0); MEAN PLATELET VOLUME 9.7 fL (7.4-10.4); MONOCYTES 8.2 % (2-11); NEUTROPHILS 75.8 % (40-80); PLATELET COUNT 185 10x3/uL (130-400); RBC 3.01 10x6/uL (4.00-5.40); RDW 14.2 % (11.5-14.5); WBC 8.5 10x3/uL (4.8-10.8)
[2018-03-15 06:40] LABS: ANION GAP 19.1 mmol/L (8-16); CALCIUM 8.7 mg/dL (8.5-10.1); CARBON DIOXIDE 25.1 mmol/L (21.0-32.0); CREATININE - SERUM 9.1 mg/dL (0.6-1.3); PHOSPHOROUS 6.8 mg/dL (2.5-4.9); POTASSIUM - SERUM 4.2 mmol/L (3.5-5.1)
[2018-03-15 07:00] VITALS: BP 140/72
--- NOTE | 2018-03-15 07:57 | NUR ---
PT AWAKE, WATCHING TV. DID NOT SPEAK JUST SMILED AND NODDED. CL IN REACH. NON NEEDS NTOED.
--- NOTE | 2018-03-15 10:32 | NUR ---
CRISTINE NEEDS AT THIS TIME. CALL LIGHT IN REACH. WILL MONITOR.
[2018-03-15 11:00] VITALS: BP 142/88
--- NOTE | 2018-03-15 12:58 | NUR ---
PT TOLD DIALYSIS CLINIC THAT "THEY CAN KEEP ME LONG THEY WANT TOO, I DON'T WANT TO GO ANYWHERE"
[2018-03-15 15:00] VITALS: BP 130/78
--- NOTE | 2018-03-15 15:49 | MORECARE ---
CASE MANAGEMENT DISCHARGE SUMMARY PATIENT: GRISEL HERNANDEZ UNIT: [id number] ADM DATE: 03/10/18 AGE: 62 : 55 SEX: F ROOM/BED: D.2132 AUTHOR: OMAR TORRE PHYSICIAN: REFERRING PHYSICIAN: WOO AYALA MD DATE OF SERVICE: 03/15/18 Discharge Plan Patient Name: GRISEL HERNANDEZ [facility] [facility] 1955 Planned Disposition: Home Anticipated Discharge Date: 03/16/18 Discharge Date: Expected LOS: 6 Initial Reviewer: [email or web address] Initial Review Date: 03/10/2018 Generated: 03/15/18 4:48 pm DCPIA - Discharge Planning Initial Assessment Updated by [email or web address]: Breanne Mahoney on 03/15/18 3:42 pm * Is the patient Alert and Oriented? Yes * How many steps to enter\exit or inside your home? NONE * PCP DR RESTREPO IN [place] * Pharmacy [facility] * Preadmission Environment Home Alone * ADLs Partial Dependent * Partial ADLs (Assistance needed) Bathing Dressing * Equipment Rolling Walker Shower Chair * Other Equipment DENIES ANY OTHER DME * List name and contact numbers for known caregivers / representatives who currently or will assist patient after discharge: [facility]- [phone] * Verbal permission to speak to the caregivers and representatives has been obtained from the patient. No * Community resources currently utilized Other * Please name any agencies selected above. DELIVERY TRUCK DRIVER SAT- SATURDAY ?? AGENCY * Additional services required to return to the preadmission environment? No * Can the patient safely return to the preadmission environment? Yes * Has this patient been hospitalized within the prior 30 days at any hospital? No Patient Name: GRISEL HERNANDEZ Page [phone] at 1549 All edits/amendments must be made on the electronic document DICTATION DATE: 03/15/181547 CCNP: GARY 03/15/18 154 RPT#: [id number] DC DATE: STATUS: ADM IN [facility] [address] [place] [address] END OF REPORT
--- NOTE | 2018-03-15 16:14 | MORECARE ---
CASE MANAGEMENT DISCHARGE SUMMARY PATIENT: GRISEL HERNANDEZ UNIT: [id number] ADM DATE: 03/10/18 AGE: 62 : 55 SEX: F ROOM/BED: D.2424 AUTHOR: NICHO,DOC PHYSICIAN: REFERRING PHYSICIAN: WOO AYALA MD DATE OF SERVICE: 03/15/18 Discharge Plan Patient Name: GRISEL HERNANDEZ Facility: [facility]:[place] : 1955 Planned Disposition: Home Anticipated Discharge Date: 03/16/18 Discharge Date: Expected LOS: 6 Initial Reviewer: [email or web address] Initial Review Date: 03/10/2018 Generated: 03/15/18 5:14 pm Comments DCP- Discharge Planning Updated by [id number]: Breanne Mahoney on 03/15/18 3:[address] LATE ENTRY-100 CM MET WITH THE PATIENT AT THE BEDSIDE.SHE REPORTEDLY LIVES ALONE. 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 SHE CANNOT RECALL THE AGENCY. CONTACT PHONE NUMBER [phone] ERIK BARKLEY IS HER SISTER- CONTACT PHONE [phone]. PATIENT STATES SHE DID NOT KNOW SHE WAS DISCHARGED TODAY. CM ADVISED. SHE UTILIZES [facility]. SHE COMPLAINS SHE IS CONSTIPATED. CM STATES WE CAN ADDRESS THAT ISSUE. CM ALSO EXPLAINED WE CAN PROVIDE [facility] TRANSPORTATION TO HOME. PATIENT AGREES TO [facility] TRANSP[facility]. DENIED ANY HOME HEALTH SERVICES. REPORTEDLY HAS HAD SERVICES PREVIOUSLY. HAS HD SAT/ SAT / SATURDAY W/ [facility] FOR DIALYSIS. DENIES ANY OTHER COMPLAINTS. HAD MULTIPLE PHONE CALLS DURING INTERVIEW. APPEARS COMFORTABLE. SMILING. APPETITE APPEARS GOOD. EMPTY BREAKFAST TRAY STILL AT THE BEDSIDE. CM REMOVED. IF CONSTI[PATION ADDRESSED, WILL PLAN FOR DISCHARGE IN THE AM. VOICED NO ADDITIONAL CONCERNS. [facility]SP[facility] WILL BE FINE WITH THE PATIENT. PCP- DR KAYE PHILIP DINH DISCUSSED WITH THE PRIMARY NURSE. SHE WILL SPEAK WITH PATIENT. SHE CALLED CM BACK TO STATE THE PATIENT HAS A BM 2 DAYS AGO. SHE WILL ADDRESS. CM ADVISED SHE DISCUSS DISCHARGE WITH DR AYALA WHEN HE ROUNDS SO THAT HE CAN SPEAK WITH THE PATIENT. DCPIA - Discharge Planning Initial Assessment Updated by [id number]: Breanne Mahoney on 03/15/18 3:42 pm * Is the patient Alert and Oriented? Yes * How many steps to enter\exit or inside your home? NONE * PCP DR RESTREPO [place] * Pharmacy [facility] * Preadmission Environment Home Alone * ADLs Partial Dependent * Partial ADLs (Assistance needed) Bathing Dressing * Equipment Rolling Walker Shower Chair * Other Equipment DENIES ANY OTHER DME * List name and contact numbers for known caregivers / representatives who currently or will assist patient after discharge: [facility] [phone] * Verbal permission to speak to the caregivers and representatives has been obtained from the patient. No * Community resources currently utilized Other * Please name any agencies selected above. PROJECT ASSOCIATE SAT- SATURDAY ?? AGENCY * Additional services required to return to the preadmission environment? No * Can the patient safely return to the preadmission environment? Yes * Has this patient been hospitalized within the prior 30 days at any hospital? No Last DP export: 03/15/18 2:48 pm Patient Name: GRISEL HERNANDEZ Page [phone] at 1614 All edits/amendments must be made on the electronic document DICTATION DATE: 03/15/181613 PROFILE MILL OPERATOR TAPE CONTROL: GARY 03/15/181613 RPT#: [id number] DC DATE: STATUS: ADM IN [facility] [address] [place] [address] END OF REPORT
--- NOTE | 2018-03-15 17:37 | NUR ---
PT STATES SHE HAS RIGHT SIDED PAIN. THEN SAID LEFT. SAID IT'S GOING TO HAVE TO BE CURED BEOFRE SHE GOES. PT IS SITTIN GUP IN BED EATING WITHOUT EFFORT. NO ACUTE STRESS NOTED. LAUGHING LOUDLY AT TELEVISION MOVIE. SHANELL LOOKED INTO PTS HX AND LAST YEAR SHE WAS HERE FOR AN EXTENDED AMOUNT OF TIME REFUSING TO SIGN THE MEDICARE RELEASE (SAME SHE IS DOING NOW) AND INSISTING HER CASE GET REVIEWED. PT KEPT COMING UP WITH REASONS TO STAY AT THAT TIME, MUCH THE SAME HER CURRENT ATTITUDE/SITUATION. WILL MAKE DR AWARE, PT IS MEDICALY STABLE FOR D/C ACCORDING TO PREVIOUS CHARTING.
[2018-03-15 20:25] VITALS: BP 116/64
--- NOTE | 2018-03-15 20:30 | NUR ---
INITIAL ORUNDS COMPLETDA T 1915 HRS. PT HAD C/O R SIDED FLANK PAIN. NORCO 5/325 PO GIVEN AT 1925 HRS. ASSESSMENT COMPLETED AT THAT TIME. R EJ SL. LUNGS CTA. HEART TONES S1 S2. PANDYA. R ARM WITH FISTULA NOTED WITH BRUIT AND THRILL NOTED. PANDYA. 1+ PEDAL EDEMA NOTED. WILL CONTINUE TO MONITOR. SR UP X2, CALL LIGHT WITHIN REACH.
--- NOTE | 2018-03-15 23:03 | NUR ---
PM MFSBS 260. 10 UNITS HUMALOG GIVEN SUB-Q TO UPPER L ARM. PM SNACK SERVED. PT RFUSED PM COLACE. PT CURRENTLY RESTING WITH EYES CLOSED. RESP EVEN AND REGULAR. SR UP X2, CALL LIGHT WITHIN REACH.
--- NOTE | 2018-03-16 00:11 | NUR ---
PT RESTING WITH EYES CLOSED. RESP EVEN AND REGULAR. SR UP X2, CALL LIGHT WITHIN REACH.
[2018-03-16 00:30] VITALS: BP 116/53
--- NOTE | 2018-03-16 02:01 | NUR ---
PT RESTING WITH EYES CLOSED. RESP EVEN AND REGULAR. SR UP X2, CALL LIGHT WITHIN REACH.
--- NOTE | 2018-03-16 04:21 | NUR ---
PT RESTING WITH EYES CLOSED. RESP EVEN AND REGULAR. SR UP X2, CALL LIGHT WITHIN REACH.
[2018-03-16 04:45] VITALS: BP 121/61
--- NOTE | 2018-03-16 05:40 | NUR ---
PT HAS C/O ABD PAIN. PT REFUSED OFFER FOR MIRALAX STATING SHE HAD A BOWEL MOVEMENT THIS AM. NORCO 5/325PO GIVEN.
--- NOTE | 2018-03-16 05:54 | NUR ---
PT INITIALY REFUSED NORCO STATING SHE WANTED IV PAIN MEDS. INFORMED PT SHE NEVER HAD IV PAIN MEDS THIS ADMISSION. PT BECAME VERY UPSET AND STATED SHE DID AND THAT THIS NURSE GAVE SOME TO HER. INFORMED PT THAT HER IV ASSESS WAS FLUSHED WITH NORMAL SALINE ONLY. REVIEWED ALL MEDS ORDERED THIS ADMISSION WITH PT AND NO IV PAIN MEDS OUTSIDE OF IT RISK ADVISOR ORDERED. PT VERY UPSET BUT TOOK NORCO AND PROTONIX WHEN INFORMED NOTHING ELSE TO GIVE. AM FSBS 118. NO COVERAGE NECESARY. NEEDS MET; WILL CONTINUE TO MONITOR.
--- NOTE | 2018-03-16 07:44 | NUR ---
PT ASLEEP, DID NOT WAKE I ENTERED. HEART SPECIALIST RN KARMEN REPORTED SHE HAS BEEN DEMANDING IV PAIN MEDS ALL NIGHT. PT HAS NO I/V PAIN MEDICAITON, STILL BELIEVE SHE IS TRYING TO STAY (SUPPOSED TO D/C TODAY) DID NOT FURTHER DISTURB, PT RESTING PEACEFULLY.
[2018-03-16 08:25] VITALS: BP 118/66
--- NOTE | 2018-03-16 10:06 | NUR ---
PT TOLD JOSEFINA RUDD THAT SHE WOULD BE FINDING ANOTHER DR AND NEVER [facility] "THAT BITCH JUST PISSED ME OFF" (LETICIA). SANGITAMYRON INFORMED PT THAT SHE WOULD BE D/C REGARDLESS OF SIDE PAIN D/T IT NOT BEING A NEW SYMPTOM.
[2018-03-16] MEDS ORDERED: PLAVIX75 MG PO (10:44)
[2018-03-16] MEDS ORDERED: GABAPENTIN100 MG PO (10:46)
--- NOTE | 2018-03-16 11:36 | NUR ---
CERTIFIED NURSING ASSISTANT INSTRUCTOR AT ASSISTING WITH NEEDS. WILL CONT. PLAN OF CARE.
--- NOTE | 2018-03-16 13:47 | NUR ---
PT ESCORTED OUT VIA WHEELCHAIR TO WAITING CAB. NO COMPLAINTS.
--- NOTE | 2018-03-16 20:29 | MORECARE ---
CASE MANAGEMENT DISCHARGE SUMMARY PATIENT: GRISEL HERNANDEZ UNIT: [id number] ADM DATE: 03/10/18 AGE: 62 : 55 SEX: F ROOM/BED: D.6335 AUTHOR: NICHO,DOC PHYSICIAN: REFERRING PHYSICIAN: WOO AYALA MD DATE OF SERVICE: 03/16/18 Discharge Plan Patient Name: GRISEL HERNANDEZ Facility: [facility]:[place] : 1955 Planned Disposition: Home Anticipated Discharge Date: 03/16/18 Discharge Date: 03/16/2018 Expected LOS: 6 Initial Reviewer: [email or web address] Initial Review Date: 03/10/2018 Generated: 03/16/18 9:29 pm Comments DCP- Discharge Planning Updated by [email or web address]: Breanne Mahoney on 03/15/18 3:[address] LATE ENTRY-100 CM MET WITH THE PATIENT AT THE BEDSIDE.SHE REPORTEDLY LIVES ALONE. STATES SHE HAS ACADEMIC HOSPITALIST SAT-SATURDAY FOR 2 HRS EACH DAY. SHE CANNOT RECALL THE AGENCY. CONTACT PHONE NUMBER [phone] ERIK BARKLEY IS HER SISTER- CONTACT PHONE [phone]. PATIENT STATES SHE DID NOT KNOW SHE WAS DISCHARGED TODAY. CM ADVISED. SHE UTILIZES [facility]. SHE COMPLAINS SHE IS CONSTIPATED. CM STATES WE CAN ADDRESS THAT ISSUE. CM ALSO EXPLAINED WE CAN PROVIDE [facility] TRANSPORTATION TO HOME. PATIENT AGREES TO [facility] TRANSPORT. DENIED ANY HOME HEALTH SERVICES. REPORTEDLY HAS HAD SERVICES PREVIOUSLY. HAS HD SAT/ SAT / SATURDAY W/ [facility] FOR DIALYSIS. DENIES ANY OTHER COMPLAINTS. HAD MULTIPLE PHONE CALLS DURING INTERVIEW. APPEARS COMFORTABLE. SMILING. APPETITE APPEARS GOOD. EMPTY BREAKFAST TRAY STILL AT THE BEDSIDE. CM REMOVED. IF CONSTI[PATION ADDRESSED, WILL PLAN FOR DISCHARGE IN THE AM. VOICED NO ADDITIONAL CONCERNS. [facility] TRANSP[facility] WILL BE FINE WITH THE PATIENT. PCP- DR KAYE TAO DISCUSSED WITH THE PRIMARY NURSE. SHE WILL SPEAK WITH PATIENT. SHE CALLED CM BACK TO STATE THE PATIENT HAS A BM 2 DAYS AGO. SHE WILL ADDRESS. CM ADVISED SHE DISCUSS DISCHARGE WITH DR AYALA WHEN HE ROUNDS SO THAT HE CAN SPEAK WITH THE PATIENT. DCPIA - Discharge Planning Initial Assessment Updated by [id number]: Breannejose Mahoney on 03/15/18 3:42 pm * Is the patient Alert and Oriented? Yes * How many steps to enter\exit or inside your home? NONE * PCP DR RESTREPO IN [place] * Pharmacy [facility] * Preadmission Environment Home Alone * ADLs Partial Dependent * Partial ADLs (Assistance needed) Bathing Dressing * Equipment Rolling Walker Shower Chair * Other Equipment DENIES ANY OTHER DME * List name and contact numbers for known caregivers / representatives who currently or will assist patient after discharge: [facility]- [phone] * Verbal permission to speak to the caregivers and representatives has been obtained from the patient. No * Community resources currently utilized Other * Please name any agencies selected above. ACADEMIC HOSPITALIST SAT- SATURDAY ?? AGENCY * Additional services required to return to the preadmission environment? No * Can the patient safely return to the preadmission environment? Yes * Has this patient been hospitalized within the prior 30 days at any hospital? No Last DP export: 03/15/18 3:14 pm Patient Name: GRISEL HERNANDEZ Page [id number] at 2028 All edits/amendments must be made on the electronic document DICTATION DATE: 03/16/182027 SHAKER PLATE OPERATOR: GARY 03/16/182027 RPT#: [id number] DC DATE:03/16/18 STATUS: DIS IN [facility] [address] [place] [address] END OF REPORT
--- NOTE | 2018-03-16 20:41 | MORECARE ---
CASE MANAGEMENT DISCHARGE SUMMARY PATIENT: GRISEL HERNANDEZ UNIT: [id number] ADM DATE: 03/10/18 AGE: 62 : 55 SEX: F ROOM/BED: D.8515 AUTHOR: NICHO,DOC PHYSICIAN: REFERRING PHYSICIAN: WOO AYALA MD DATE OF SERVICE: 03/16/18 Discharge Plan Patient Name: GRISEL HERNANDEZ Facility: [facility]:[place] : 1955 Planned Disposition: Home Anticipated Discharge Date: 03/16/18 Discharge Date: 03/16/2018 Expected LOS: 6 Initial Reviewer: [id number] Initial Review Date: 03/10/2018 Generated: 03/16/18 9:41 pm Comments DCP- Discharge Planning Updated by [id number]: Breanne Mahoney on 03/16/18 7:[address] LATE [id number] CM VISITED PATIENT [address] MANSFIELD HAD SPOKEN WITH HER REGARDING DISCHARGE TO HOME TODAY. DISCUSSED HOME HEALTH. SHE HAD NO PREFERENCE. POC OBTAINED. WILL REFER TO [facility] IN [place]. OBTAINS MEDS AT [facility]. CM APPROVED [facility] TRANSPORTATION TO HOME SHE HAD NO TRANSPORTATION UNTIL VAN ON SATURDAY. NURSE TO CALL [facility] AT [phone] WHEN PATIENT IS READY. CM ALERTED [facility] SERVICE TO OUT OF TOWN REQUEST. 1343 DISCHARGE IMM OBTAINED. COPY TO THE PATIENT. SIGNED COPY TO THE CHART. WILL CALL [facility] IN THE AM AND FAX REFERRAL. DCP- Discharge Planning Updated by [id number]: Breanne Mahoney on 03/15/18 3:[address] LATE ENTRY-100 CM MET WITH THE PATIENT AT THE BEDSIDE.SHE REPORTEDLY LIVES ALONE. 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 SHE CANNOT RECALL THE AGENCY. CONTACT PHONE NUMBER [phone]RECT [address]ESS [address]. ERIK BARKLEY IS HER SISTER- CONTACT PHONE [phone]. PATIENT STATES SHE DID NOT KNOW SHE WAS DISCHARGED TODAY. CM ADVISED. SHE UTILIZES [facility] TRANSPORTATION. SHE COMPLAINS SHE IS CONSTIPATED. CM STATES WE CAN ADDRESS THAT ISSUE. CM ALSO EXPLAINED WE CAN PROVIDE [facility] TRANSPORTATION TO HOME. PATIENT AGREES TO [facility] TRANSPORT. DENIED ANY HOME HEALTH SERVICES. REPORTEDLY HAS HAD SERVICES PREVIOUSLY. HAS HD SAT/ SAT / SATURDAY W/ [facility] TRANSPORT FOR DIALYSIS. DENIES ANY OTHER COMPLAINTS. HAD MULTIPLE PHONE CALLS DURING INTERVIEW. APPEARS COMFORTABLE. SMILING. APPETITE APPEARS GOOD. EMPTY BREAKFAST TRAY STILL AT THE BEDSIDE. CM REMOVED. IF CONSTI[PATION ADDRESSED, WILL PLAN FOR DISCHARGE IN THE AM. VOICED NO ADDITIONAL CONCERNS. [facility] TRANSPORT WILL BE FINE WITH THE PATIENT. PCP- [facility] DISCUSSED WITH THE PRIMARY NURSE. SHE WILL SPEAK WITH PATIENT. SHE CALLED CM BACK TO STATE THE PATIENT HAS A BM 2 DAYS AGO. SHE WILL ADDRESS. CM ADVISED SHE DISCUSS DISCHARGE WITH DR AYALA WHEN HE ROUNDS SO THAT HE CAN SPEAK WITH THE PATIENT. DCPIA - Discharge Planning Initial Assessment Updated by [id number]: Breanne Mahoney on 03/15/18 3:42 pm * Is the patient Alert and Oriented? Yes * How many steps to enter\exit or inside your home? NONE * PCP DR RESTREPO IN [place] * Pharmacy [facility] * Preadmission Environment Home Alone * ADLs Partial Dependent * Partial ADLs (Assistance needed) Bathing Dressing * Equipment Rolling Walker Shower Chair * Other Equipment DENIES ANY OTHER DME * List name and contact numbers for known caregivers / representatives who currently or will assist patient after discharge: ERIK BARKLEY- [facility] [phone] * Verbal permission to speak to the caregivers and representatives has been obtained from the patient. No * Community resources currently utilized Other * Please name any agencies selected above. COMPRESSOR OPERATOR SAT- SATURDAY ?? AGENCY * Additional services required to return to the preadmission environment? No * Can the patient safely return to the preadmission environment? Yes * Has this patient been hospitalized within the prior 30 days at any hospital? No Coverage Notice Reviewer: [id number] - Breanne Mahoney Notice Issued Date-Time: 03/16/2018 13:43 Notice Type: IM Discharge Notice Notice Delivered To: Patient Relationship to Patient: Cloth Printer Helper Name: Delivery Method: HAND - Hand Delivered Debbie Days: Prior Verbal Notification: Recipient Understood Notice: Yes Recipient Signature: Yes Med Rec Note Co-signed by Attending: Coverage Notice Comment: PATIENT UNDERSTOOD. NO QUESTIONS. COPY TO THE PATIENT AND COPY TO THE CHART. Last DP export: 03/16/18 7:29 pm Patient Name: GRISEL HERNANDEZ Page [id number] at 2040 All edits/amendments must be made on the electronic document DICTATION DATE: 03/16/182040 PM TECHNICIAN: GARY 03/16/182040 RPT#: [id number] DC DATE:03/16/18 STATUS: DIS IN [facility] [address] [place] [address] END OF REPORT
--- NOTE | 2018-03-17 10:41 | MORECARE ---
CASE MANAGEMENT DISCHARGE SUMMARY PATIENT: GRISEL HERNANDEZ UNIT: [id number] ADM DATE: 03/10/18 AGE: 62 : 55 SEX: F ROOM/BED: D.0148 AUTHOR: NICHO,DOC PHYSICIAN: REFERRING PHYSICIAN: WOO AYALA MD DATE OF SERVICE: 03/17/18 Discharge Plan Patient Name: GRISEL HERNANDEZ Facility: [facility]:[place] : 1955 Planned Disposition: Home Anticipated Discharge Date: 03/16/18 Discharge Date: 03/16/2018 Expected LOS: 6 Initial Reviewer: [email or web address] Initial Review Date: 03/10/2018 Generated: 03/17/18 11:41 am Comments DCP- Discharge Planning Updated by [email or web address]: Breanne Mahoney on 03/17/18 9:[address] LATE ENTRY 03/17/17 0910 TC TO [facility] IN [place]. SPOKE WITH RED. FAXED REFERRAL. PATIENT HAS HD ON SAT/ SAT / SATURDAY. RED STATED [facility] WILL SEE HER ON SATURDAY. DCP- Discharge Planning Updated by [id number]: Breanne Mahoney on 03/16/18 7:[address] LATE [id number] CM VISITED PATIENT [address] MANSFIELD HAD SPOKEN WITH HER REGARDING DISCHARGE TO HOME TODAY. DISCUSSED HOME HEALTH. SHE HAD NO PREFERENCE. POC OBTAINED. WILL REFER TO [facility] IN [place]. OBTAINS MEDS AT [facility]. [place] APPROVED [facility] TRANSPORTATION TO HOME SHE HAD NO TRANSPORTATION UNTIL VAN ON SATURDAY. NURSE TO CALL [facility] AT [phone] WHEN PATIENT IS READY. CM ALERTED [facility] SERVICE TO OUT OF TOWN REQUEST. 1343 DISCHARGE IMM OBTAINED. COPY TO THE PATIENT. SIGNED COPY TO THE CHART. WILL CALL [facility] IN THE AM AND FAX REFERRAL. DCP- Discharge Planning Updated by [email or web address]: Breanne Mahoney on 03/15/18 3:[address] LATE ENTRY-100 CM MET WITH THE PATIENT AT THE BEDSIDE.SHE REPORTEDLY LIVES ALONE. STATES SHE HAS SURVEILLANCE SENSOR OPERATOR SAT-SATURDAY FOR 2 HRS EACH DAY. SHE CANNOT RECALL THE AGENCY. CONTACT PHONE NUMBER [phone] CORRECT AD[address]ESS [address]. ERIK BARKLEY IS HER SISTER- CONTACT PHONE [phone]. PATIENT STATES SHE DID NOT KNOW SHE WAS DISCHARGED TODAY. CM ADVISED. SHE UTILIZES [facility] TRANSPORTATION. SHE COMPLAINS SHE IS CONSTIPATED. CM STATES WE CAN ADDRESS THAT ISSUE. CM ALSO EXPLAINED WE CAN PROVIDE [facility] TRANSPORTATION TO HOME. PATIENT AGREES TO [facility] TRANSPORT. DENIED ANY HOME HEALTH SERVICES. REPORTEDLY HAS HAD SERVICES PREVIOUSLY. HAS HD SAT/ SAT / SATURDAY W/ [facility] TRANSPORT FOR DIALYSIS. DENIES ANY OTHER COMPLAINTS. HAD MULTIPLE PHONE CALLS DURING INTERVIEW. APPEARS COMFORTABLE. SMILING. APPETITE APPEARS GOOD. EMPTY BREAKFAST TRAY STILL AT THE BEDSIDE. CM REMOVED. IF CONSTI[PATION ADDRESSED, WILL PLAN FOR DISCHARGE IN THE AM. VOICED NO ADDITIONAL CONCERNS. [facility] TRANSPORT WILL BE FINE WITH THE PATIENT. PCP- DR KAYE RIZO TAMERA DINH DISCUSSED WITH THE PRIMARY NURSE. SHE WILL SPEAK WITH PATIENT. SHE CALLED CM BACK TO STATE THE PATIENT HAS A BM 2 DAYS AGO. SHE WILL ADDRESS. CM ADVISED SHE DISCUSS DISCHARGE WITH DR AYALA WHEN HE ROUNDS SO THAT HE CAN SPEAK WITH THE PATIENT. DCPIA - Discharge Planning Initial Assessment Updated by [id number]: Breanne Mahoney on 03/15/18 3:42 pm * Is the patient Alert and Oriented? Yes * How many steps to enter\exit or inside your home? NONE * PCP DR RESTREPO IN [place] * Pharmacy [facility] * Preadmission Environment Home Alone * ADLs Partial Dependent * Partial ADLs (Assistance needed) Bathing Dressing * Equipment Rolling Walker Shower Chair * Other Equipment DENIES ANY OTHER DME * List name and contact numbers for known caregivers / representatives who currently or will assist patient after discharge: ERIK BARKLEY- SISTER- [phone] * Verbal permission to speak to the caregivers and representatives has been obtained from the patient. No * Community resources currently utilized Other * Please name any agencies selected above. SURVEILLANCE SENSOR OPERATOR SAT- SATURDAY ?? AGENCY * Additional services required to return to the preadmission environment? No * Can the patient safely return to the preadmission environment? Yes * Has this patient been hospitalized within the prior 30 days at any hospital? No Coverage Notice Reviewer: [id number] - Breanne Mahoney Notice Issued Date-Time: 03/16/2018 13:43 Notice Type: IM Discharge Notice Notice Delivered To: Patient Relationship to Patient: [employer] Salesperson Name: Delivery Method: HAND - Hand Delivered Debbie Days: Prior Verbal Notification: Recipient Understood Notice: Yes Recipient Signature: Yes Med Rec Note Co-signed by Attending: Coverage Notice Comment: PATIENT UNDERSTOOD. NO QUESTIONS. COPY TO THE PATIENT AND COPY TO THE CHART. Last DP export: 03/16/18 7:41 pm Patient Name: GRISEL HERNANDEZ Page [id number] at 1041 All edits/amendments must be made on the electronic document DICTATION DATE: 03/17/18 1040 SR. PRICING ANALYST: DM 03/17/18 1040 RPT#: [id number] DC DATE:03/16/18 STATUS: DIS IN [facility] [address] [place] [address] END OF REPORT
--- NOTE | 2018-03-17 12:54 | MORECARE ---
CASE MANAGEMENT DISCHARGE SUMMARY PATIENT: GRISEL HERNANDEZ UNIT: [id number] ADM DATE: 03/10/18 AGE: 62 : 55 SEX: F ROOM/BED: D.7219 AUTHOR: NICHO,DOC PHYSICIAN: REFERRING PHYSICIAN: WOO AYALA MD DATE OF SERVICE: 03/17/18 Discharge Plan Patient Name: GRISEL HERNANDEZ Facility: [facility]:[place] : 1955 Planned Disposition: Home Anticipated Discharge Date: 03/16/18 Discharge Date: 03/16/2018 Expected LOS: 6 Initial Reviewer: [email or web address] Initial Review Date: 03/10/2018 Generated: 03/17/18 1:54 pm Comments DCP- Discharge Planning Updated by [email or web address]: Breanne Mahoney on 03/17/18 9:[address] LATE ENTRY 03/17/17 0910 TC TO [facility] [place]. SPOKE WITH RED. FAXED REFERRAL. PATIENT HAS HD ON SAT/ SAT / SATURDAY. RED STATED [facility] WILL SEE HER ON SATURDAY. DCP- Discharge Planning Updated by [id number]: Breanne Mahoney on 03/16/18 7:[address] LATE [id number] CM VISITED PATIENT [address] MANSFIELD HAD SPOKEN WITH HER REGARDING DISCHARGE TO HOME TODAY. DISCUSSED HOME HEALTH. SHE HAD NO PREFERENCE. POC OBTAINED. WILL REFER TO [facility] [place]. OBTAINS MEDS AT [facility]. [place] APPROVED [facility] TRANSPORTATION TO HOME SHE HAD NO TRANSPORTATION UNTIL VAN ON SATURDAY. NURSE TO CALL [facility] AT [phone] WHEN PATIENT IS READY. CM ALERTED [facility] SERVICE TO OUT OF TOWN REQUEST. 1343 DISCHARGE IMM OBTAINED. COPY TO THE PATIENT. SIGNED COPY TO THE CHART. WILL CALL [facility] IN THE AM AND FAX REFERRAL. DCP- Discharge Planning Updated by [id number]: Breanne Mahoney on 03/15/18 3:[address] LATE ENTRY-100 CM MET WITH THE PATIENT AT THE BEDSIDE.SHE REPORTEDLY LIVES ALONE. STATES SHE HAS PLASTIC MOULD MAKER SAT-SATURDAY FOR 2 HRS EACH DAY. SHE CANNOT RECALL THE AGENCY. CONTACT PHONE NUMBER [phone] CORRECT AD[address]ESS [address]. ERIK BARKLEY IS HER SISTER- CONTACT PHONE [phone]. PATIENT STATES SHE DID NOT KNOW SHE WAS DISCHARGED TODAY. CM ADVISED. SHE UTILIZES [facility] TRANSPORTATION. SHE COMPLAINS SHE IS CONSTIPATED. CM STATES WE CAN ADDRESS THAT ISSUE. CM ALSO EXPLAINED WE CAN PROVIDE [facility] TRANSPORTATION TO HOME. PATIENT AGREES TO [facility] TRANSPORT. DENIED ANY HOME HEALTH SERVICES. REPORTEDLY HAS HAD SERVICES PREVIOUSLY. HAS HD SAT/ SAT / SATURDAY W/ [facility] TRANSPORT FOR DIALYSIS. DENIES ANY OTHER COMPLAINTS. HAD MULTIPLE PHONE CALLS DURING INTERVIEW. APPEARS COMFORTABLE. SMILING. APPETITE APPEARS GOOD. EMPTY BREAKFAST TRAY STILL AT THE BEDSIDE. CM REMOVED. IF CONSTI[PATION ADDRESSED, WILL PLAN FOR DISCHARGE IN THE AM. VOICED NO ADDITIONAL CONCERNS. [facility] TRANSPORT WILL BE FINE WITH THE PATIENT. PCP- DR KAYE RIZO TAMERA DINH DISCUSSED WITH THE PRIMARY NURSE. SHE WILL SPEAK WITH PATIENT. SHE CALLED CM BACK TO STATE THE PATIENT HAS A BM 2 DAYS AGO. SHE WILL ADDRESS. CM ADVISED SHE DISCUSS DISCHARGE WITH DR AYALA WHEN HE ROUNDS SO THAT HE CAN SPEAK WITH THE PATIENT. DCPIA - Discharge Planning Initial Assessment Updated by [id number]: Breanne Mahoney on 03/15/18 3:42 pm * Is the patient Alert and Oriented? Yes * How many steps to enter\exit or inside your home? NONE * PCP DR RESTREPO IN [place] * Pharmacy [facility] * Preadmission Environment Home Alone * ADLs Partial Dependent * Partial ADLs (Assistance needed) Bathing Dressing * Equipment Rolling Walker Shower Chair * Other Equipment DENIES ANY OTHER DME * List name and contact numbers for known caregivers / representatives who currently or will assist patient after discharge: ERIK BARKLEY- SISTER- [phone] * Verbal permission to speak to the caregivers and representatives has been obtained from the patient. No * Community resources currently utilized Other * Please name any agencies selected above. PLASTIC MOULD MAKER SAT- SATURDAY ?? AGENCY * Additional services required to return to the preadmission environment? No * Can the patient safely return to the preadmission environment? Yes * Has this patient been hospitalized within the prior 30 days at any hospital? No Coverage Notice Reviewer: [id number] - Breanne Mahoney Notice Issued Date-Time: 03/16/2018 13:43 Notice Type: IM Discharge Notice Notice Delivered To: Patient Relationship to Patient: Show Card Letterer Name: Delivery Method: HAND - Hand Delivered Debbie Days: Prior Verbal Notification: Recipient Understood Notice: Yes Recipient Signature: Yes Med Rec Note Co-signed by Attending: Coverage Notice Comment: PATIENT UNDERSTOOD. NO QUESTIONS. COPY TO THE PATIENT AND COPY TO THE CHART. Last DP export: 03/17/18 9:41 am Patient Name: GRISEL HERNANDEZ Page [id number] at 1254 All edits/amendments must be made on the electronic document DICTATION DATE: 03/17/18 1254 REFINERY OPERATOR: GARY 03/17/18 1254 RPT#: [id number] DC DATE:03/16/18 STATUS: DIS IN [facility] [address] [place] [address] END OF REPORT
[2018-03-18 06:15] LABS: HEPATITIS BE ANTIBODY Negative (Negative)
== END 2018-03-16 13:47 | disposition home health service (06) | DRG 250 ==
LOC: D.ER 23:08 → D.M2 03-10 00:31 → D.ICU 03-10 00:31 → D.M2 03-12 09:45
PROVIDERS: Internal Medicine Interventional Cardiology; Internal Medicine Nephrology; ADMIT Internal Medicine Nephrology
PROC: B2111ZZ Fluoroscopy of Multiple Coronary Arteries using Low Osmolar Contrast (ICD-10-PCS; 2018-03-10)
PROC: B2151ZZ Fluoroscopy of Left Heart using Low Osmolar Contrast (ICD-10-PCS; 2018-03-10)
PROC: 02703ZZ Dilation of Coronary Artery, One Artery, Percutaneous Approach (ICD-10-PCS; principal; 2018-03-10 15:00)
PROC: 4A023N7 Measurement of Cardiac Sampling and Pressure, Left Heart, Percutaneous Approach (ICD-10-PCS; 2018-03-10 15:00)
DX: I25.119 Atherosclerotic heart disease of native coronary artery with unspecified angina pectoris (principal); N18.6 End stage renal disease; I12.0 Hypertensive chronic kidney disease with stage 5 chronic kidney disease or end stage renal disease; I48.91 Unspecified atrial fibrillation; I42.9 Cardiomyopathy, unspecified; I25.82 Chronic total occlusion of coronary artery; E83.39 Other disorders of phosphorus metabolism; D63.1 Anemia in chronic kidney disease; E11.22 Type 2 diabetes mellitus with diabetic chronic kidney disease; E11.43 Type 2 diabetes mellitus with diabetic autonomic (poly)neuropathy; K31.84 Gastroparesis; K21.9 Gastro-esophageal reflux disease without esophagitis; Z91.14 Patient's other noncompliance with medication regimen

== ENCOUNTER 2018-04-01 13:05 | Observation (INO) | payer MEDICARE ==
[~2018-04-01] VITALS: Ht 167.6 cm; Wt 66.8 kg
--- NOTE | ~2018-04-01 | HEMODYNAMI ---
PATIENT:GRISEL HERNANDEZ MEDICAL RECORD: [id number] : 55 LOCATION:[address] ADMISSION DATE: 04/01/18 Generatedon:04/02/20188:31 Patient name: GRISEL HERNANDEZ Patient #: [id number] SSN: : 1955 Date of study: 04/02/2018 Page: Of Hemodynamic Procedure Report Patient Data Patient Demographics Procedure consent was obtained First Name: GRISEL Gender: Female Last Name: DAVID : 1955 Patient #: [id number] Age: 62 year(s) Race: Black Additional ID: [id number] Contact details [address]: [address] [place] [address] State: [place] City: [place] Zip code: [address] Past Medical History Allergies Allergen Reaction Date Comments Reported Other allergy 04/02/2018 ASA, SHRIMP, METFORMIN, IODINE Admission Admission Data Admission Date: 04/01/2018 Admission Time: 15:16 Room #: [facility] Lab Results Lab Result Date: 04/02/2018 Lab Result Time: 0:00 Biochemistry Name Units Result Min Max BUN mg/dl 39 --(----)-* 7 18 Creatinine mg/dl 7.8 --(----)-* 0.6 1.3 CBC Name Units Result Min Max Hemoglobin g/dl 8.8 *-(----)-- 13.5 17.5 Procedure Procedure Types Cath Procedure Diagnostic Procedure LHC LHC w/Coronaries Procedure Description Procedure Date Procedure Date: 04/02/2018 Procedure Start Time: 8:10 Procedure End Time: 8:28 Procedure Staff Name Function Mitchel Multani MD Performing Physician Leonel Le RT Monitor Trupti Gilliam RT Scrub Vicki Osorio RN Nurse John Bernard RN Truck Cleaner Procedure Data Cath Procedure Fluoroscopy Diagnostic fluoroscopy Total fluoroscopy Time: 6.1 time: 6.1 min min Diagnostic fluoroscopy Total fluoroscopy dose: 663 dose: 663 mGy mGy Contrast Material Contrast Material Type Amount (ml) Isovue 300 98 Entry Location Entry Primary Successful Side Size Upsize Upsize Entry Closure Succes sful Closure Location (Fr) 1 (Fr) 2 (Fr) Remarks Device Remarks Femoral Right 5 Fr 6 Fr Exoseal artery Short Diagnostic catheters Device Type Used For End Catheter Placement MULTIPACK Pigtail 5 Fr LV Angiography catheter MULTIPACK JL 4.0 5Fr Left Coronary catheter Angiography MULTIPACK 3DRC 5Fr Right Coronary catheter Angiography Procedure Complications No complications Procedure Medications Medication Administration Route Dosage 0.9% NaCl I.V. Oxygen etCO2 Nasal cannula 2 l/min Lidocaine 2% added to field 20 Heparin Flush Bag added to field 2 bags (1000units/500ml NS) Versed I.V. 2 mg Fentanyl I.V. 50 mcg Versed I.V. 2 mg Fentanyl I.V. 50 mcg Heparin Bolus I.V. 4000 units Hemodynamics Rest HGB: 8.8 (g/dl) Heart Rate: 110 (bpm) Snapshots Pre Cath Intra NCS Post Cath Vital Signs Time Heart Resp SPO2 etCO2 NIBP (mmHg) Rhythm Pain Sedation Rate (ipm) (%) (mmHg) Status Level (bpm) 7:51:19 101 14 100 28.4 134/88(113) NSR 0 (11) 10(A) , No pain 7:55:30 100 14 100 23.1 132/84(113) NSR 0 (11) 10(A) , No pain 7:59:42 97 14 99 41.1 119/82(97) NSR 0 (11) 10(A) , No pain 8:03:52 97 16 99 43.3 122/75(103) NSR 0 (11) 10(A) , No pain 8:08:02 96 13 99 44.8 122/75(105) NSR 0 (11) 10(A) , No pain 8:12:08 91 10 96 46.3 128/89(120) NSR 0 (11) 10(A) , No pain 8:16:16 93 14 98 52.4 119/89(111) NSR 0 (11) 9(A) , No pain 8:21:36 100 15 100 35.1 119/84(109) NSR 0 (11) 9(A) , No pain 8:25:43 96 7 100 30.6 108/74(94) NSR 0 (11) 10(A) , No pain Medications Time Medication Route Dose Verified Delivered Reason Notes Effectiveness by by 7:50:32 0.9% NaCl I.V. 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 2 mg Mitchel Vicki for sedation Rangel Osorio RN 8:06:54 Fentanyl I.V. 50 Mitchel Vicki for sedation mcg Rangel Osorio RN 8:13:06 Versed I.V. 2 mg Mitchel Vicki for sedation Rangel Osorio RN 8:13:10 Fentanyl I.V. 50 Mitchel Vicki for sedation mcg Rangel Osorio RN 8:16:38 Heparin Bolus I.V. 4000 Mitchel Vicki for verifi ed units Rangel Osorio anticoagulation with Dr. MC Multani Procedure Log Time Note 7:25:27 Signed procedure consent form obtained from patient. 7:25:28 Diagnostic Cath status Elective 7:25:29 Time tracking: Regular hours (M-F 7:00 - 5:00) 7:25:32 Plan of Care:Hemodynamics will remain stable., Cardiac rhythm will remain stable., Comfort level will be maintained., Respiratory function will remain adequate., Patient/ family verbilizes understanding of procedure., Procedure tolerated without complication., Recovers from procedure without complications.. 7:26:21 H&P Date Dictated: 04/01/2018 Within 30 days and on chart.. 7:28:54 Patient allergic to Other allergyASA, SHRIMP, METFORMIN, IODINE 7:30:48 Leonel Le RT(R) sent for patient. Start room use. 7:48:25 Patient received from Med II to CCL 1 Alert and oriented. Tansferred to table in Supine position. 7:48:27 Warm blankets applied, and atilio hugger turned on for patient comfort. 7:48:27 Correct patient and procedure confirmed by team. 7:48:28 ECG and BP/O2 sat monitors applied to patient. 7:50:14 Vital chart was started 7:50:32 0.9% NaCl KVO I.V. was administered by Vicki Osorio RN; used for procedure; 7:50:39 Oxygen 2 l/min etCO2 Nasal cannula was administered by Vicki Osorio RN; used for procedure; 7:50:50 Lidocaine 2% 20ml vial added to field was administered by Mitchel Multani MD; for local anesthetic; 7:50:54 Heparin Flush Bag (1000units/500ml NS) 2 bags added to field was administered by Mitchel Multani MD; used for procedure; 7:54:09 Baseline sample Acquired. 7:54:16 Rhythm: sinus tachycardia 7:54:17 Full Disclosure recording started 7:55:25 Pre-procedure instructions explained to patient. 7:55:26 Pre-op teaching completed and patient verbalized understanding. 7:55:28 Family unavailable. 7:55:30 Patient NPO since Midnight. 7:55:34 Is the patient allergic to Iodine/contrast media? Yes. 7:55:36 Was the patient premedicated? Yes 7:55:38 Is patient on blood thinner?Yes 7:55:40 ACC The patient was administered the following blood thiners within the last 24 hours: ACCPlavix 7:55:42 Patient diabetic? Yes. 7:55:43 If diabetic: On Metformin? No 7:55:45 ----Pre-sedation anethsthesia assessment.---- 7:55:47 Previous problem with sedation/anesthesia? No ? 7:55:50 Snore? Yes 7:55:51 Sleep apnea? Yes 7:55:53 Deviated septum? No 7:55:55 Opens mouth fully? Yes 7:55:56 Sticks out tongue? Yes 7:55:58 Airway obstruction? No ? 7:56:00 Dentures? No ? 7:56:03 Pre procedure: right dorsailis pedis pulse 1+ Palpable, but thready & weak; easily obliterated 7:56:07 Patient pain scale 0/10 ?. 7:56:14 IV patent on arrival in left wrist with 0.9% NaCl at 10ml/hr. 7:57:04 Lab Result : BUN 39 mg/dl 7:57:04 Lab Result : Creatinine 7.8 mg/dl 7:57:04 Lab Result : Hemoglobin 8.8 g/dl 7:57:08 Lab results completed and on chart. 7:57:12 Lab results completed and on chart, positive M.D. notified. 7:57:15 Right groin area was prepped with chlora-prep and draped in sterile fashion 7:57:16 Alarms reviewed by R. N. 7:57:17 Sharps counted by scrub and verified by R.N. 7:57:19 Physician paged 8:06:00 Physician arrived 8:06:00 --------ALL STOP TIME OUT------ 8:06:01 Final Timeout: patient, procedure, and site verified with staff and physician. All members of the team are in agreement. 8:06:02 Right groin site verified by team. 8:06:07 Physical assessment completed. ASA score P 2 - A patient with mild systemic disease as per Mitchel Multani MD. 8:06:11 Sedation plan: IV Moderate Sedation Medication:Versed, Fentanyl 8:06:42 Versed 2 mg I.V. was administered by Vicki Osorio RN; for sedation; 8:06:54 Fentanyl 50 mcg I.V. was administered by Vicki Osorio RN; for sedation; 8:10:45 Procedure started. 8:10:53 Local anesthetic to right femoral artery with Lidocaine 2% by Mitchel Multani MD.INITIAL ACCESS ONLY 8:11:12 Use device set Femoral Dx 8:11:13 ACIST Syringe (35929) opened to sterile field. 8:11:13 Bag Decanter (2002) opened to sterile field. 8:11:14 Medline Cath Pack ([id number]) opened to sterile field. 8:11:14 DIAGNOSTIC WIRE .035 260cm J wire (087352) opened to sterile field. 8:11:16 ACIST Hand Control (50280) opened to sterile field. 8:11:16 ACIST Manifold (25081) opened to sterile field. 8:11:16 DIAGNOSTIC Multipack 5Fr catheter set (LP4506) opened to sterile field. 8:11:19 SHEATH 5FR Hamill (MJT324) opened to sterile field. 8:11:22 Zero performed for pressure channel P1 8:11:33 A 5 Fr sheath was inserted into the Right Femoral artery 8:12:05 A MULTIPACK Pigtail 5 Fr catheter was advanced over the wire and used for LV Angiography. 8:12:38 LV angiography performed. 8:12:40 LV gram done using ANDRES 8:12:52 EF : 30 % 8:12:54 Catheter removed. 8:12:59 A MULTIPACK JL 4.0 5Fr catheter was advanced over the wire and used for Left Coronary Angiography. 8:13:02 LCA angiography performed. 8:13:06 Versed 2 mg I.V. was administered by Vicki Osorio RN; for sedation; 8:13:10 Fentanyl 50 mcg I.V. was administered by Vicki Osorio RN; for sedation; 8:14:25 Catheter removed. 8:14:34 A MULTIPACK 3DRC 5Fr catheter was advanced over the wire and used for Right Coronary Angiography. 8:14:38 RCA angiography performed. 8:15:23 Catheter removed. 8:15:28 Sheath upsized to a 6 Fr Short. 8:15:56 GUIDE 6FR XBLAD 3.5 catheter ([id number]) opened to sterile field. 8:15:57 CHOICE PT Extra Support 182cm wire ([id number]) opened to sterile field. 8:15:58 SHEATH 6FR Hamill (KBF574) opened to sterile field. 8:16:00 INFLATOR Merit BasixCompak (CD1290) opened to sterile field. 8:16:38 Heparin Bolus 4000 units I.V. was administered by Vicki Osorio RN; for anticoagulation; verified with Dr. Multani 8:16:46 6 Fr AR 1 SH guide catheter was inserted over the wire 8:18:01 LCA angiography performed. 8:18:03 Catheter removed. 8:18:13 6 Fr XBLAD 3.5 guide catheter was inserted over the wire 8:18:26 CPTES wire advanced. 8:21:00 Wire removed. 8:22:01 FIELDER XT 190cm guidewire ([id number]) opened to sterile field. 8:25:32 Place stent Inflation Number: 1 A VIOLET RX 2.5 x 22 stent ([id number]) was prepped and advanced across the Prox LAD. The stent was deployed at 17 ARLETTE for 0:15 (min:sec). 8:25:40 Stent catheter was removed intact over wire. 8:25:41 Wire removed. 8:25:42 Guide catheter removed. 8:25:50 Contrast amount:Isovue 300 98ml. 8:25:57 Sheath removed intact; hemostasis achieved with Exoseal to the Right Femoral artery. 8:26:03 EXOSEAL 6Fr (EX600) opened to sterile field. 8:26:06 Procedure ended.(Physican Out) 8:27:12 Fluoroscopy time 06.10 minutes. 8:27:19 Fluoroscopy dose: 663 mGy 8:27:19 Flurop Dose total: 663 8:27:21 Insertion/operative site no bleeding no hematoma. 8:27:24 Post-op/insertion site Right Femoral artery dressed using a 4 x 4 and Tegaderm. 8:27:27 Post right femoral artery:stable 8:27:29 Post Procedure Pulses reassessed and unchanged 8:27:31 Post procedure: right dorsailis pedis pulse 1+ Palpable, but thready & weak; easily obliterated. 8:27:34 Post procedure rhythm: sinus rhythm 8:27:36 Post procedure instruction explained to patient.Patient verbalizes understanding. 8:27:38 Procedure and supply charges have been captured, reviewed, submitted and are correct. 8:27:45 Procedure Complication : No complications 8:27:48 Vital chart was stopped 8:27:48 See physician's report for complete and final results. 8:28:03 Report given to PCU. 8:28:06 Patient transfered to ICU with Bed. 8:28:08 Procedure ended. 8:28:08 Full Disclosure recording stopped 8:28:11 End room use (Document Last) Intervention Summary Intervention Notes Time ActionType Lesion and Equipment Used Action# Pressure Duration Attributes 8:25:32 Place stent Prox LAD VIOLET RX 2.5 x 1 17 00:15 22 stent ([id number]) Device Usage Item Name Manufacture Quantity Catalog Number Hospital Part Current M inimal Lot# / Charge Number Stock Stock Serial# Code ACIST Syringe Acist 1 79854 275525 987683 576911 2 0 (21498) [employer]zuk[employer] Inc Bag Decanter Microtek 1 492101 69673 190028 5 () [employer] Medline Cath Medline 1 [id number] 546206 91408 573377 5 Pack ([id number]) DIAGNOSTIC St Rico 1 170818 718191 497756 735729 3 0 WIRE .035 260cm J wire (636876) ACIST Hand Acist 1 08492 790917 002452 289137 5 Control Medical (36727) Systems Inc ACIST Manifold Acist 1 63075 600827 023078 754273 5 (18076) Medical Systems Inc DIAGNOSTIC Cardinal 1 ZC0865 603461 69772 456767 3 0 Multipack 5Fr Health catheter set (EA7538) SHEATH 5FR Terumo 1 IJG147 633760 061678 273933 5 Hamill (CHR533) MULTIPACK Cardinal 1 089668 5 Pigtail 5 Fr Health catheter MULTIPACK JL Cardinal 1 823225 5 4.0 5Fr Health catheter MULTIPACK 3DRC Cardinal 1 345201 5 5Fr catheter Health GUIDE 6FR Cardinal 1 13295255 286212 357930 122744 1 0 XBLAD 3.5 Health catheter ([id number]) CHOICE PT [place] 1 [id number] 919610 361486 075186 5 Extra Support Scientific 182cm wire ([id number]) SHEATH 6FR Terumo 1 VRF188 119545 217941 746281 4 0 Hamill (YKJ380) INFLATOR Merit Merit 1 KR1893 200383 552109 264127 1 5 EvaporcoolPrimary Children'S HospitalSantaro Interactive Entertainment (STIE) (FS1332) FIELDER XT Arnold 1 [id number] 833194 25191 302580 5 190cm Vascular guidewire ([id number]) VIOLET RX 2.5 x Medtronic 1 [id number] 848149 8337231 239797 5 [id number] 22 stent ([id number]) EXOSEAL 6Fr Cardinal 1 EX600 640383 775887 289573 1 0 (EX600) Health Signature Audit [place] Stage Time Signature Unsigned Intra-Procedure 04/02/2018 Leonel SCOTT([place]) 8:31:45 AM Signatures Monitor : Leonel Le RT Signature : Date : Time : [facility] [address] [place] [address]
[~2018-04-01 13:05] MED LIST changes: +HYDROCHLOROTH12.5 M1 PO; +MEGACE40 MG PO; +NEURONTIN 300300 MG PO; +PLAVIX75 MG PO; +TUMS X-STR300 MG PO; +ZESTRIL40 MG PO; +ZOFRAN8 MG PO
--- NOTE | 2018-04-01 15:26 | NUR ---
1455 RECEIVED PATIENT VIA EMS FROM [facility] IN [place]. PATIENT ALERT/ORIENTED. 22 GAUGE IV TO LEFT WRIST SALINE LOCKED. PLEASANT AND COOPERATIVE. CONVERSING ON CELL PHONE. PATIENT STATES SHE HAS CHEST PAIN AT MIDSTERNAL AREA, PAIN DOES NOT RADIATE. PATIENT REFUSED ANY PAIN MEDICATION ENROUTE VIA EMS. CALL LIGHT WITH REACH. ICE WATER PROVIDED. NO DISTRESS.
[2018-04-01] MEDS ORDERED: RENAGEL800 MG PO (15:31)
[2018-04-01] MEDS ORDERED: METOPROLOL TART25 MG PO (15:32)
[2018-04-01] MEDS ORDERED: REGLAN10 MG PO (15:35)
[2018-04-01] MEDS ORDERED: ELIQUIS5 MG PO (15:36)
--- NOTE | 2018-04-01 17:50 | NUR ---
CONSENTS SIGNED AND ON THE CHART FOR HEART CATH IN AM.
[2018-04-01 18:18] VITALS: BP 116/68; Ht 167.6 cm; Wt 66.8 kg
--- NOTE | 2018-04-01 18:37 | HP ---
PATIENT: GRISEL MCCORMACK MEDICAL RECORD: [id number] ACCOUNT: [id number] LOCATION:[address] : 55 ADMISSION DATE: 04/01/18 PCP: BLANCA MEANS MD HISTORY AND PHYSICAL EXAMINATION DIAGNOSES: 1. Unstable angina. 2. Coronary artery disease. 3. Previous multivessel PTCA and stent. 4. End-stage renal failure, on dialysis. 5. Hypertension. 6. Hyperlipidemia. HISTORY: Mrs. Mccormack presents with increasing anginal symptomatology. She has a history of coronary artery disease, PTCA and stent approximately a year ago. She has been having increasing episodes of chest pain and chest discomfort, compatible with angina for the past week, just like that of her previous angina. She has been compliant with her blood pressure medication. She as well is on Eliquis. She continues on Plavix as well. PHYSICAL EXAMINATION: GENERAL APPEARANCE: Well-nourished, well-developed, appears stated age. Level of distress, comfortable. PSYCHIATRIC: Mental status, alert, normal affect. Orientation, oriented to time, place and person. EYES: Lids and conjunctiva, noninjected. No discharge, no pallor. ENT: Lips, teeth, gums, normal dentition. Oropharynx, no cyanosis, no pallor. NECK: Carotid arteries, bilateral normal upstroke, no bruits, no thrills. JUGULAR VEINS: No jugular venous pressure or distention. CERVICAL LYMPH NODES: Nontender, nonenlarged. THYROID: Not enlarged. Nontender. No nodules. LUNGS: Respiratory effort, unlabored. CHEST: Normal curvature. No thoracic deformity. No chest wall tenderness. Percussion, resonant. Auscultation, clear. No wheezes, no rales, no rhonchi. CARDIOVASCULAR: Precordial exam, nondisplaced. No heaves or pericardial thrills. Rate and rhythm, regular. Heart sounds, normal S1, normal S2. No S3, no gallop, no rub. Systolic murmur, not heard. Diastolic murmur, not heard. EXTREMITIES: No cyanosis, no edema. Peripheral pulses, full and equal in all extremities, except as noted. No bruits appreciated. ABDOMEN: Soft, nondistended. Normal aorta. No bruit. Nontender. No masses. Liver, nontender, no hepatomegaly. Spleen, nontender, no splenomegaly. MUSCULOSKELETAL: No joint tenderness. No joint swelling. No erythema. NEUROLOGICAL: Normal gait, normal strength, normal tone. SKIN: Warm and dry. OVERALL IMPRESSION: Chest pain, compatible with angina, in an escalating fashion. Most likely, she has recurrent and hemodynamically significant coronary artery disease. We will proceed with coronary angiography. Further care depends upon findings of the angiography. We will consult renal for dialysis after angiography. TRANSINT:[id number] Voice Confirmation ID: [id number] DOCUMENT ID: [id number] HISTORY AND PHYSICAL [id number] GRISEL MCCORMACK JEFFREY MD at 1837 CC: [id number] DICTATION DATE: 04/01/18 1630 DIE CUTTER: 04/01/18 1714 ADM IN [place] [id number] [place] [id number]
[2018-04-01 19:00] VITALS: BP 102/63
--- NOTE | 2018-04-01 19:30 | NUR ---
RESUMING PATIENT CARE. PATIENT ALERT AND ORIENTED, RESTING COMFORTABLY IN BED. RESPIRATIONS ARE EVEN AND UNLABOED. NO S/S OF DISTRESS. NO C/O PAIN. PATIENT GIVE ICE CREAN AND GRAMHAN CRACKERS FOR SNACK. CALL LIGHT WITHIN REACH. WILL CPOC.
[2018-04-02] VITALS: BP 113/71
[2018-04-02 04:00] VITALS: BP 104/72
--- NOTE | 2018-04-02 07:39 | NUR ---
ALERT AND ORIENTED X4. RESTING IN BED. 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 PRETREAT FOR IODINE ALLERGY COMPLETE. CONSENTS SIGNED ON CHART. TAKEN TO FELT HAT MELLOWING MACHINE OPERATOR VIA BED. CONTINUE PLAN OF CARE AND SAFETY PRECAUTIONS.
--- NOTE | 2018-04-02 09:34 | NUR ---
0915: PATIENT BACK TO ROOM FROM TAXICAB DRIVER, NOT PLACED ON TELEMETRY. OBTAINED LEADS FOR TELEMETRY AND BEGIN VITALS. PATIENT UNABLE TO AROUSE. CHECK PULSE. NO PULSE. CALL CODE BLUE. SEE CODE BLUE RECORDS.
--- NOTE | 2018-04-02 13:28 | NUR ---
HOME ARRIVES. FAMILY LEAVES PATIENT. ASSIST TO GURNEY. BELONGINGS GIVEN TO ERIK BARKLEY PATIENT'S SISTER.
--- NOTE | 2018-04-03 09:16 | MORECARE ---
CASE MANAGEMENT DISCHARGE SUMMARY PATIENT: GRISEL HERNANDEZ UNIT: [id number] ADM DATE: 04/01/18 AGE: 62 : 55 SEX: F ROOM/BED: D.4338 AUTHOR: OMAR TORRE PHYSICIAN: REFERRING PHYSICIAN: BLANCA MEANS MD DATE OF SERVICE: 04/03/18 Discharge Plan Patient Name: GRISEL HERNANDEZ Facility: [facility]:[place] : 1955 Planned Disposition: Anticipated Discharge Date: 04/02/18 Discharge Date: 04/02/2018 Expected LOS: 1 Initial Reviewer: [email or web address] Initial Review Date: 04/03/2018 Generated: 04/03/18 10:15 am Patient Name: GRISEL HERNANDEZ Page [id number] at 0916 All edits/amendments must be made on the electronic document DICTATION DATE: 04/03/18914 JEWELRY CUTTER: GARY 04/03/18914 RPT#: [id number] DC DATE:04/02/18 STATUS: DIS IN [facility] [address] [place] [address] END OF REPORT
--- NOTE | 2018-04-03 18:15 | DS ---
PATIENT:GRISEL MCCORMACK :55 MEDICAL RECORD: [id number] DISCHARGE SUMMARY ADMISSION DATE: 04/01/18 DISCHARGE DATE: 04/02/18 DATE OF SERVICE: 04/02/2018 DIAGNOSES: 1. Angina. 2. Coronary artery disease. 3. PTCA and stent of LAD this admission. 4. Hypertension. 5. Hyperlipidemia. 6. End-stage renal failure, on dialysis. HOSPITAL COURSE: Ms. Mccormack is known to us with a past history of coronary artery disease. She presents with angina. She was found to have total occlusion of the circumflex. This is a chronic total occlusion. No wire would cross this. We turned our attention to the LAD, which was 80% stenosed and had successful PTCA and stent of the LAD. Discharged home with no change in her medications as she is already on Plavix. Will follow up with [facility] in 1 month. TRANSINT:[id number] Voice Confirmation ID: [id number] DOCUMENT ID: [id number] BLANCA MEANS MD at 1815 CC: [id number] DICTATION DATE: 04/02/18 0832 MANUFACTURED BUILDINGS SUPERVISOR: 04/02/18 0926 DIS IN 04/02/18 [facility] [address] [place] [address]
--- NOTE | 2018-04-03 18:15 | OP ---
PATIENT NAME: GRISEL HERNANDEZ MEDICAL RECORD: [id number] :55 LOCATION:D.M2 D.2125 ADMISSION DATE:04/01/18 SURGEON: BLANCA MEANS MD DATE OF OPERATION: 04/02/2018 PROCEDURES: 1. PTCA and stent to the LAD. 2. Left heart catheterization. 3. Selective coronary angiography. 4. Left ventriculogram. INDICATIONS: Angina and coronary artery disease. PROCEDURE PERFORMED: After informed consent was obtained with detailed description of risks, benefits as well as alternative therapies, the patient elected to proceed with angiogram and angioplasty. The right femoral area was prepped and draped in normal sterile fashion. Right femoral artery was cannulated via modified Seldinger technique with placement of 6-Bulgarian sheath. All catheters exchanged through this sheath. FINDINGS: The left ventriculogram was performed in standard 30-degree ANDRES view reveals global hypokinesis throughout all segments. Overall ejection fraction is 30%. SELECTIVE CORONARY ANGIOGRAPHY: 1. Left main is with no significant angiographic disease. 2. Left anterior descending has a long area of 80% stenosis proximally. 3. Left circumflex has a chronic total occlusion in the proximal vessel. Distal vessel fills via left to left collaterals. 4. Right coronary is small and diffusely diseased. PTCA AND STENT OF THE LEFT CIRCUMFLEX: We attempted to cross the total occlusion in the left circumflex and no wire would cross this, we then turned our attention to the LAD. PTCA AND STENT OF THE LEFT ANTERIOR DESCENDING: We stented the left anterior descending with a 2.5 x 22 mm Trev. Result was 0% residual stenosis. OVERALL IMPRESSION: 1. Successful PTCA and stent of the LAD going from 80% initial stenosis to 0% residual. 2. Chronic total occlusion of the left circumflex and no wire would cross this. This will be medical management. TRANSINT:[id number] Voice Confirmation ID: [id number] DOCUMENT ID: [id number] OPERATIVE REPORT [id number] GRISEL HERNANDEZ JEFFREY MD at 1815 CC: [id number] DICTATION DATE: 04/02/18 0831 DIRECTOR MACHINE: 04/02/18 09 DIS IN 04/02/18 [facility] [id number] [place] [address]
== END 2018-04-02 13:31 ==
LOC: D.M2 13:05 → OBSVTIME 15:16 → D.M2 15:16
PROVIDERS: ADMIT Internal Medicine Interventional Cardiology
DX: I25.110 Atherosclerotic heart disease of native coronary artery with unstable angina pectoris (principal); I12.0 Hypertensive chronic kidney disease with stage 5 chronic kidney disease or end stage renal disease; N18.6 End stage renal disease; Z99.2 Dependence on renal dialysis; E78.5 Hyperlipidemia, unspecified; I46.9 Cardiac arrest, cause unspecified
CPT/HCPCS: 31500; 93458; C9600